=== PATIENT | male | born 1955 | race Caucasian/White ===

== ENCOUNTER 2019-03-24 09:14 | Outpatient (CLI) | payer BC, SELFPAY ==
[2019-03-24 09:58] LABS: INR 0.9
[2019-03-24 09:59] LABS: Partial Thromboplastin Time 28.3 SECONDS (22.3-36.8)
== END 2019-03-24 09:15 | disposition home or self-care (01) ==
PROVIDERS: PCP Family Medicine; Visit Provider Urology
DX: N20.1 Calculus of ureter (principal)
CPT/HCPCS: 36415; 85610; 85730; 87086

== ENCOUNTER 2019-03-30 01:34 | Day surgery (SDC) | payer BC, SELFPAY ==
[2019-03-23 10:13] VITALS: BMI 40.7
--- NOTE | ~2019-03-30 | XR_ITS ---
EXAMINATION: XR abdomen/kub 1V DATE: 03/30/2019 08:34 INDICATION: Kidney stone. TECHNIQUE: A supine view of the abdomen on 2 radiographs was obtained. COMPARISON: CT abdomen and pelvis 03/09/2019 FINDINGS: There are no dilated loops of bowel. There are bilateral internal ureteral stents in expect ed positions. There are approximately 4 stones in left kidney measuring up to 5 mm. There are greater than 10 stones in right kidney and right renal pelvis measuring up to 11 mm. There are phleboliths i n the pelvis. There is a total right hip arthroplasty. IMPRESSION: 1. Stones in the kidneys and right renal pelvis with bilateral internal ureteral stents in expected p ositions. Reviewed, dictated and finalized at location A. GATHERER IMPRESSION: 1. Stones in the kidneys and right renal pelvis with bilateral internal uretera l stents in expected positions.
--- NOTE | 2019-03-30 07:19 | WPDHPUPDATE1 ---
History and Physical Update Update Date/Time: 03/30/19 07:19 History and Physical has been reviewed, including an updated exam of the patient. There are NO changes in the patient's condition. Risks, benefits, and alternatives have been discussed and questions answered. Patient agrees to proceed with procedure.
[2019-03-30 09:00] VITALS: BMI 41.5
[2019-03-30] MEDS: LACTATED RINGERS 1,000 ML 30 ML IV CONT (09:30)
[2019-03-30 09:34] VITALS: BP 150/89; PULSE 76; RESP 14; TEMP 36.8; O2SAT 96
--- NOTE | 2019-03-30 10:15 | WPDANESEFPP ---
Anes - Eval Final PreProcedure Day of Procedure 03/30/19 10:15 Patient weight: morbidly obese Heart: regular rate and rhythm Lungs: clear to auscultation Airway: Mallampati scale class II Neurological: alert and oriented Last oral intake: >/= 8 hours ASA classification: III Emergent: no Anesthetic plan: proceed Anesthesia type and monitoring: general LMA and standard monitoring Informed Consent: The patient's anesthetic plan and its attendant risks and benefits were discussed with the patient/family/POA. Questions were solicited and answers provided to the satisfaction of the patient/family/POA.
[2019-03-30] MEDS: ceFAZolin 3 GM/D5W 100 ML 100 ML IVPB (10:56)
[2019-03-30] MEDS: LIDOCAINE HCL 2% GEL UROJET 10 ML PKG MUCOUS MEM (11:13)
--- NOTE | 2019-03-30 11:39 | PM.PROC ---
Procedure Note - Detailed Date of procedure: 03/30/19 Pre-op diagnosis: Right Post-op diagnosis: same Procedure performed: 1. Cystoscopy, left stent removal. 2. Right ESWL. Description of procedure: The patient was brought to the operative suite where he was placed in the supine position on the Dornier lithotripter table. Flexible cystoscopy was undertaken with a 16F flexible cystoscopy. There were no urethral strictures. The prostatic uretehral estimated lenght was 1.5cm. There was mild obstruction of the prostatic urethra with minimal median lobe enlargement. The bladder mucosa was normal and there was a single, orthotopic ureteral orifice bilaterally. The tip of the indwelling stent was grasped and the stent was removed with ease. The patient was then repositioned in the supine position with the focal point of the lithotriptor was placed on 2 stones in the right renal pelvis, each measuring ~8mm. A total of 2500 shocks were delivered at a power setting of 7. There appeared to be good fragmentation of the stone. The patient tolerated the procedure well and was taken to the recovery room in good condition. Anesthesia: GLMA Surgeon: Marvin Sagastume MD Estimated blood loss (mL): 0 Drains: No Packing: No Pathology: none sent Complications: No immediate complications Condition: stable
[2019-03-30 11:43] VITALS: BP 161/105; PULSE 86; RESP 10; TEMP 36.6; O2SAT 98
[2019-03-30 11:58] VITALS: BP 135/102; PULSE 73; RESP 16; O2SAT 96
[2019-03-30 12:13] VITALS: BP 148/89; PULSE 74; RESP 14; O2SAT 96
[2019-03-30 12:23] VITALS: BP 148/85; PULSE 68; RESP 16
[2019-03-30 12:50] VITALS: BP 148/90; PULSE 67; RESP 16
== END 2019-03-30 13:00 | disposition home or self-care (01) ==
PROVIDERS: PCP Family Medicine; Visit Provider Urology
PROC: (CPT 50590; principal; 2019-03-30 10:30)
PROC: (CPT 52352; 2019-03-30 10:30)
DX: N20.0 Calculus of kidney (principal)
CPT/HCPCS: 50590; 74018; J0131; J0690; J1100; J2250; J2405; J2704; J3010; J7120

== ENCOUNTER 2019-04-20 10:31 | Outpatient (CLI) | payer BC, SELFPAY ==
--- NOTE | ~2019-04-20 | XR_ITS ---
XR abdomen/kub 1V 04/20/2019 10:48 Indication: Right ureteral stone Procedure: KUB Comparison: Comparison to multiple prior studies sequentially, with oldest reviewed study dated 04/28. Findings: Bowel gas pattern is nonobstructive. There are cholecystectomy clips. There is a right inte rnal ureteral stent. There are multiple right renal stones with at least 2 stones in the expected loc ation of the right renal pelvis. There are pelvic phleboliths. Interval resolution of left renal ston es. Bowel gas pattern is nonobstructive. Right total hip arthroplasty is present. Impression: 1: Right nephrolithiasis without significant change from prior study. Right internal ureteral stent i n expected position. Reviewed, dictated and finalized at location B. RGIST IMMUNOLOGIST Impression: 1: Right nephrolithiasis without significant change from prior study. Right int ernal ureteral stent in expected position.
== END 2019-04-20 10:32 | disposition home or self-care (01) ==
LOC: ANHIMG 10:36
PROVIDERS: PCP Family Medicine; Visit Provider Urology
DX: N20.0 Calculus of kidney (principal); Z96.0 Presence of urogenital implants
CPT/HCPCS: 74018

== ENCOUNTER 2019-04-27 02:01 | Day surgery (SDC) | payer BC, SELFPAY ==
[2019-04-24 12:01] VITALS: BMI 41.5
[2019-04-27] VITALS (9 sets, daily range): BP systolic 123–151; BP diastolic 58–86; PULSE 61–77; RESP 12–20; TEMP 36.2–37.8; O2SAT 95–99
--- NOTE | ~2019-04-27 | XR_ITS ---
EXAMINATION: XR abdomen/kub 1V DATE: 04/27/2019 07:37 INDICATION: Right renal stone. TECHNIQUE: A supine view of the abdomen was obtained. COMPARISON: CT abdomen and pelvis 03/09/2019, abdomen radiographs 04/20/2019 FINDINGS: There are no dilated loops of bowel. There is a right internal ureteral stent in expected p osition. There are phleboliths in the pelvis. There are greater than 10 stones in right kidney and ri ght renal pelvis measuring up to 10 mm in right renal pelvis. IMPRESSION: 1. Stones in right kidney and right renal pelvis with right internal ureteral stent in expected posit ion. Reviewed, dictated and finalized at location A. IMPRESSION: 1. Stones in right kidney and right renal pelvis with right internal ureteral s tent in expected position.
--- NOTE | 2019-04-27 07:14 | WPDHPUPDATE1 ---
History and Physical Update Update Date/Time: 04/27/19 07:14 History and Physical has been reviewed, including an updated exam of the patient. There are NO changes in the patient's condition. Risks, benefits, and alternatives have been discussed and questions answered. Patient agrees to proceed with procedure.
--- NOTE | 2019-04-27 07:47 | ECG_ITS ---
Measurements Intervals [place] Rate: 67 P: 50 GA: 189 QRS: 46 QRSD: 97 T: 90 QT: 372 QTc: 393 Interpretive Statements SINUS RHYTHM MINIMAL Q WAVES- INFERIOR LEADS NONSPECIFIC T-WAVE ABNORMALITY- LATERAL LEADS BORDERLINE ECG Electronically Signed On 04-27-2019 8:02:06 CDT by Raj Hudson D.O.
[2019-04-27] MEDS: LACTATED RINGERS 1,000 ML 30 ML IV CONT (08:15)
--- NOTE | 2019-04-27 08:28 | WPDANESEPPF ---
Anes - Initial Pre Proc Eval Procedure: Operation Date: 04/27/19 09:30 Proposed Procedures p Cystoscopy, Right Renal Extracorporeal Shock Wave Lithotripsy With Stent Removal - Marvin Sagastume MD Date/Time: 04/27/19 08:28 Surgeon: Marvin Sagastume MD Pre Op Diagnosis: Kidney Stones Patient Data Age: 63 Gender: M Height: 1.7 m Weight: 120.2 kg Allergies Allergy/AdvReac Type Severity Reaction Status Date / Time No Known Allergies Allergy Verified 04/27/19 07:57 Home Medications Medication Instructions Recorded Confirmed Type cholecalciferol (vitamin D3) 125 mcg PO DAILY 03/06/19 04/27/19 History [Vitamin D3] enalapril maleate 10 mg PO DAILY 03/06/19 04/27/19 History finasteride 5 mg PO DAILY 03/06/19 04/27/19 History rosuvastatin 10 mg PO DAILY 03/06/19 04/27/19 History Laboratory Tests 04/27/19 07:55 PT Pending INR Pending APTT Pending Patient hx anesthesia problems: none Family hx anesthesia problems: none [facility] Past Medical History Medical History (Updated 04/26/19 @ 12:59 by Rg Khoury DO) Arthritis Depression Hyperlipidemia Hypertension Osteoarthritis Renal stones Surgical History Surgical History (Updated 04/26/19 @ 12:59 by Rg Khoury DO) History of appendectomy History of total hip arthroplasty Anes - Eval Final PreProcedure Day of Procedure 04/27/19 08:28 Patient weight: morbidly obese Heart: regular rate and rhythm Lungs: clear to auscultation and normal air movement Airway: Mallampati scale class III Neurological: alert and oriented Last oral intake: >/= 8 hours ASA classification: III Emergent: no Anesthetic plan: proceed Anesthesia type and monitoring: general LMA and standard monitoring Informed Consent: The patient's anesthetic plan and its attendant risks and benefits were discussed with the patient/family/POA. Questions were solicited and answers provided to the satisfaction of the patient/family/POA.
[2019-04-27 08:36] LABS: INR 0.9; Prothrombin Time 12.1 Seconds (11.1-14.7)
[2019-04-27 08:37] LABS: Partial Thromboplastin Time 27.7 SECONDS (22.3-36.8)
[2019-04-27] MEDS: ceFAZolin 3 GM/D5W 100 ML 100 ML IVPB (08:52)
--- NOTE | 2019-04-27 09:39 | PM.PROC ---
Procedure Note - Detailed Date of procedure: 04/27/19 Pre-op diagnosis: Right proximal ureteral/ Post-op diagnosis: same Procedure performed: 1. Right ESWL. 2. Cysto./right ureteral stent removal. Description of procedure: The patient was brought to the operative suite where he was placed in the supine position on the Dornier lithotripter table. Flexible cystoscopy was undertaken with a 16F flexible cystoscopy. There were no urethral strictures. The prostatic uretehral estimated lenght was 2.0cm. There was mild obstruction of the prostatic urethra with no median lobe enlargement. The bladder mucosa was normal and there was a single, orthotopic ureteral orifice bilaterally. The tip of the indwelling stent was grasped and the stent was removed with ease The patient was then repositioned in the supine position with the focal point of the lithotriptor on a collection of stone fragments in the proximal right ureter/right UPJ. A total of 3000 shocks were delivered at a power setting of 8. There appeared to be good fragmentation of the stone. The patient tolerated the procedure well and was taken to the recovery room in good condition. Anesthesia: GLMA Surgeon: Marvin Sagastume MD Estimated blood loss (mL): 0 Drains: No Packing: No Pathology: none sent Complications: No immediate complications Condition: stable Disposition: PACU
--- NOTE | 2019-04-27 10:22 | SUR.PHASEI ---
1015-STATES HAS CHRONIC BACK PAIN THAT IS WORSENED WITH LOW STRETCHER POSITION, PT REPOSITIONED ON STRETCHER AND ELEVATED HOB TO MORE SITTING POSITION. PT. STATES IS MUCH BETTER AND DENIES ANY OP SITE DISCOMFORT. 1020-RESTING QUIETLY, SNORING, IN UPRIGHT POSITION WITH EYES CLOSED, NOT DISTURBED.
== END 2019-04-27 11:23 | disposition home or self-care (01) ==
PROVIDERS: PCP Family Medicine; Visit Provider Urology
PROC: (CPT 50590; principal; 2019-04-27 09:30)
DX: N20.1 Calculus of ureter (principal); I10 Essential (primary) hypertension; E78.5 Hyperlipidemia, unspecified; M19.90 Unspecified osteoarthritis, unspecified site; F32.9 Major depressive disorder, single episode, unspecified; E66.01 Morbid (severe) obesity due to excess calories; Z68.41 Body mass index [BMI] 40.0-44.9, adult
CPT/HCPCS: 50590; 52310; 36415; 74018; 85610; 85730; 93005; A9270; J0131; J0690; J1100; J2250; J2405; J2704; J3010; J7030; J7120

== ENCOUNTER 2019-11-06 09:24 | Outpatient (CLI) | payer BC, SELFPAY ==
--- NOTE | ~2019-11-06 | XR_ITS ---
EXAMINATION: XR abdomen/kub 1V EXAM DATE: 11/06/2019 09:38 INDICATION: Kidney stones. TECHNIQUE: Frontal projection(s) of the abdomen for interpretation. Comparison is made to prior exami nation from 04/27/19. FINDINGS: Right-sided double-J ureteral stent has been removed. Calcifications, probably stone fragm ents following lithotripsy, projecting over the lower pole of the right kidney, the ureteropelvic frank ction region and mid aspect of the ureter. Approximately 3 mm density projecting over left kidney, po ssible nephrolithiasis. Nonobstructive bowel gas pattern. There are cholecystectomy clips. Right hip replacement. IMPRESSION: 1. Large burden of right calyceal, ureteral stones. 2. Possible small left nephrolithiasis. Reviewed, dictated and finalized at location B.
== END 2019-11-06 09:25 | disposition home or self-care (01) ==
PROVIDERS: PCP Family Medicine; Visit Provider Urology
DX: N20.0 Calculus of kidney (principal)
CPT/HCPCS: 74018

== ENCOUNTER 2019-11-08 12:52 | Outpatient (CLI) | payer BC, SELFPAY ==
--- NOTE | ~2019-11-08 | CT_ITS ---
EXAMINATION: CT abdomen pelvis wo con EXAM DATE: 11/08/2019 13:12 INDICATION: Right flank pain. TECHNIQUE: Spiral CT of the abdomen and pelvis was performed without contrast. Axial, coronal and sag ittal images were reviewed. The dose-length product (DLP) for this examination was 1579.67 mGy-cm. The exposure was tailored according to patient size (auto mA exposure control), and iterative reconst ruction (ASIR) was used as additional dose reduction technique. Comparison is made to prior examinati on from 03/09/2019. FINDINGS: There are several contiguous right ureteropelvic junction stones, measuring up to 10 mm in greatest axial dimension. In craniocaudal dimension these calcifications measure over 2 cm. There is another 6 mm stone in the dependent aspect of the right renal pelvis, and several other smaller calyc eal stones. There is moderate right-sided hydronephrosis. Multiple punctate left calyceal stones. The prostate is unremarkable. The bladder is unremarkable. There is hepatic steatosis without suspi cious focal lesion identified. Spleen, adrenal glands, pancreas are unremarkable. Gallbladder is unr emarkable. No biliary obstruction. There is no retroperitoneal or pelvic lymphadenopathy. There i s mild scattered arteriosclerotic disease. The appendix is normal. The stomach and small bowel are unremarkable. There is mild sigmoid colonic diverticulosis. There is no adjacent inflammatory change to suggest diverticulitis. No free intrape ritoneal gas. The heart is normal in size. There are no pericardial or pleural effusions. The delta g bases are unremarkable. There are no osteoblastic or osteolytic lesions identified. IMPRESSION: 1. Multiple sizable right UPJ stones, moderate hydronephrosis. 2. Bilateral nephrolithiasis. Urologist consultants would appreciate KUB as baseline for follow-up, treatment planning. Reviewed, dictated and finalized at location B.
== END 2019-11-08 12:53 | disposition home or self-care (01) ==
PROVIDERS: PCP Family Medicine; Visit Provider Urology
DX: N20.0 Calculus of kidney (principal)
CPT/HCPCS: 74176

== ENCOUNTER 2019-11-16 10:44 | Outpatient (CLI) | payer BC, SELFPAY ==
[2019-11-16 11:16] LABS: INR 1.1; Prothrombin Time 13.5 Seconds (11.1-14.7)
== END 2019-11-16 10:45 | disposition home or self-care (01) ==
LOC: ANHLAB 10:46
PROVIDERS: PCP Family Medicine; Visit Provider Urology
DX: N20.0 Calculus of kidney (principal); Z01.812 Encounter for preprocedural laboratory examination
CPT/HCPCS: 36415; 85610; 85730; 87086

== ENCOUNTER 2019-11-21 01:54 | Outpatient (CLI) | payer BC, SELFPAY ==
[2019-11-21 19:19] LABS: SARS-CoV-2 RNA PCR Negative
== END 2019-11-21 01:55 | disposition home or self-care (01) ==
LOC: ANHCOVIDDT 01:54
PROVIDERS: PCP Family Medicine; Visit Provider Urology
DX: Z01.812 Encounter for preprocedural laboratory examination (principal); Z20.828 Contact with and (suspected) exposure to other viral communicable diseases
CPT/HCPCS: 87635; C9803; U0003

== ENCOUNTER 2019-11-23 00:29 | Day surgery (SDC) | payer BC, SELFPAY ==
[2019-11-13 13:54] VITALS: BMI 42.1
--- NOTE | 2019-11-22 07:17 | P.HP_ITS ---
History of Present Illness History of Present Illness Consent: Risks, benefits, and alternatives have been discussed and questions answered. Patient agrees to proceed with procedure. Chief complaint: UPJ Stones Narrative: Craig Caicedo is a 64 year old male Who has had multiple lithotripsies in the past. He is known to have residual stones in the right kidney which has now grown to a considerable size, approximately 2 cm. I discussed options with him including repeat ESWL procedures, percutaneous nephrolithotomy, endoscopic approach. He has opted for ESWL with the realization that this might require multiple procedures Review of Systems Cardiovascular: Cardiovascular: Denies chest pain, Denies lightheadedness, Denies palpitations and Denies dyspnea Respiratory: Respiratory: Denies dyspnea Gastrointestinal: Gastrointestinal: Denies diarrhea, Denies nausea and Denies vomiting Genitourinary: Genitourinary: Denies hematuria and Denies dysuria Endocrine: Endocrine: Denies palpitations [facility] Past Medical History Medical History (Updated 11/22/19 @ 07:19 by Marvin Sagastume MD) Arthritis Depression Hyperlipidemia Hypertension Osteoarthritis Renal stones Surgical History Surgical History History of appendectomy History of total hip arthroplasty Social History Social History Smoking status: Never smoker Alcohol intake: never Meds Home Medications and Allergies Home Medications Medication Instructions Recorded Confirmed Type enalapril maleate 10 mg PO DAILY 03/06/19 11/13/19 History finasteride 5 mg PO DAILY 03/06/19 11/13/19 History rosuvastatin 10 mg PO DAILY 03/06/19 11/13/19 History diclofenac sodium 75 mg PO BID PRN 11/13/19 11/13/19 History Allergies Allergy/AdvReac Type Severity Reaction Status Date / Time No Known Allergies Allergy Verified 04/27/19 07:57 Exam Const: General: no acute distress Resp: Effort & Inspection: normal respiratory effort GI: Inspection: non-distended GI Palp: No abdominal tenderness and No Guarding due to palpation present (GI) Auscultation: normal bowel sounds Assessment and Plan Assessment and plan (1) Right renal stone: Code(s): N20.0 - Calculus of kidney Status: Acute Additional Plan * Cystoscopy, possible right ureteral stent placement and right ESWL
--- NOTE | ~2019-11-23 | XR_ITS ---
XR abdomen/kub 1V DATE: 11/23/2019 07:41 INDICATION: Right lithotripsy. Right urinary tract stones. TECHNIQUE: AP projection, 2 views COMPARISON: 11/08/[address] abdomen pelvis FINDINGS: Approximately 5 and 6 mm calcified calculi overlying the lower pole of the right kidney. Ad ditional right renal faintly calcified stones are not excluded. Approximate 6 x 14 mm tear-drop calcified calculus overlies the proximal right ureter at the L2 level . There is an approximate 4.5 cm length of calcified stones (Steinstrasse) overlying the right ureter a t the L4 level. Bilateral calcified pelvic phleboliths. The psoas shadows are intact. No evidence of bowel obstruction. Surgical clips, right upper quadrant, consistent with cholecystectomy. IMPRESSION: Right ureteral Steinstrasse at L4 level 6 x 14 mm calcified calculus at proximal right ureter at L2 level Right nephrolithiasis Status post cholecystectomy Reviewed, dictated and finalized at Location A. Reviewed, dictated and finalized at location A.
--- NOTE | 2019-11-23 07:04 | WPDHPUPDATE1 ---
History and Physical Update Update Date/Time: 11/23/19 07:04 History and Physical has been reviewed, including an updated exam of the patient. There are NO changes in the patient's condition. Risks, benefits, and alternatives have been discussed and questions answered. Patient agrees to proceed with procedure.
[2019-11-23 07:52] VITALS: BP 151/96; PULSE 85; RESP 20; TEMP 36.2; O2SAT 97
[2019-11-23] MEDS: LACTATED RINGERS 1,000 ML 30 ML IV CONT ×2 (08:02→10:17)
--- NOTE | 2019-11-23 09:00 | P.PNAN_ITS ---
Anes - Initial Pre Proc Eval Procedure: Operation Date: 11/23/19 09:30 Proposed Procedures p Right Ureteral Extracorporeal Shock Wave Lithotripsy - Marvin Sagastume MD s Possible Cystoscopy, Possible Right Ureteral Stent Placement - Marvin Sagastume MD Date/Time: 11/23/19 09:00 Surgeon: Marvin Sagastume MD Pre Op Diagnosis: UPJ Stones Patient Data Age: 64 Gender: M Height: 5 ft 7 in Weight: 122 kg Last Vital Signs Temp 36.2 C L 11/23/19 07:52 Pulse 85 11/23/19 07:52 Resp 20 11/23/19 07:52 BP 151/96 H 11/23/19 07:52 Pulse Ox 97 11/23/19 07:52 Allergies Allergy/AdvReac Type Severity Reaction Status Date / Time No Known Allergies Allergy Verified 11/23/19 08:33 Home Medications Medication Instructions Recorded Confirmed Type enalapril maleate 10 mg PO DAILY 03/06/19 11/23/19 History finasteride 5 mg PO DAILY 03/06/19 11/23/19 History rosuvastatin 10 mg PO DAILY 03/06/19 11/23/19 History diclofenac sodium 75 mg PO BID PRN 11/13/19 11/23/19 History Patient hx anesthesia problems: none Family hx anesthesia problems: none PMFSH Past Medical History Medical History Arthritis Depression Hyperlipidemia Hypertension Osteoarthritis Renal stones Surgical History Surgical History History of appendectomy History of total hip arthroplasty Social History Social History Smoking status: Never smoker Alcohol intake: never Living arrangements: with family Anes - Eval Final PreProcedure Day of Procedure 11/23/19 09:00 Patient weight: morbidly obese Heart: regular rate and rhythm Lungs: clear to auscultation Airway: Mallampati scale class II Neurological: alert and oriented Last oral intake: >/= 8 hours ASA classification: III Emergent: no Anesthetic plan: proceed Anesthesia type and monitoring: general LMA and ETT and standard monitoring Informed Consent: The patient's anesthetic plan and its attendant risks and benefits were discussed with the patient/family/POA. Questions were solicited a nd answers provided to the satisfaction of the patient/family/POA.
[2019-11-23] MEDS: ceFAZolin 3 GM/D5W 100 ML 100 ML IVPB (09:28)
--- NOTE | 2019-11-23 09:53 | PM.PROC ---
Procedure Note - Detailed Date of procedure: 11/23/19 Pre-op diagnosis: UPJ Stones Post-op diagnosis: same Procedure performed: Right ESWL Description of procedure: The patient was brought to the operative suite where he was placed in the supine position on the Dornier lithotripsy table. The focal point of the lithotripter was placed at a collection of stones at right UPJ and extending into proximal right ureter. A total of 3000 shocks were delivered at a power setting of 6. There appeared to be good fragmentation of the stone. The patient tolerated the procedure well and was taken to the recovery room in good condition. Anesthesia: GLMA Surgeon: Marvin Sagastume MD Estimated blood loss (mL): 0 Drains: No Packing: No Pathology: none sent Complications: No immediate complications Condition: stable Disposition: PACU
[2019-11-23 10:20] VITALS: BP 135/91; PULSE 82; RESP 18; TEMP 36.8; O2SAT 98
[2019-11-23 10:35] VITALS: BP 138/91; PULSE 67; RESP 16; O2SAT 100
[2019-11-23 10:50] VITALS: BP 125/92; PULSE 68; RESP 16; O2SAT 99
[2019-11-23 10:58] VITALS: BP 154/89; PULSE 67
[2019-11-23 11:30] VITALS: BP 158/84; PULSE 69
== END 2019-11-23 11:50 | disposition home or self-care (01) ==
PROVIDERS: PCP Family Medicine; Visit Provider Urology
PROC: (CPT 50590; principal; 2019-11-23 09:30)
DX: N20.1 Calculus of ureter (principal); I10 Essential (primary) hypertension; E78.5 Hyperlipidemia, unspecified; F32.9 Major depressive disorder, single episode, unspecified; M19.90 Unspecified osteoarthritis, unspecified site; E66.01 Morbid (severe) obesity due to excess calories; Z68.41 Body mass index [BMI] 40.0-44.9, adult
CPT/HCPCS: 50590; 74018; A9270; J0690; J1100; J2405; J2704; J7030; J7120

== ENCOUNTER 2019-12-13 15:30 | Outpatient (CLI) | payer BC, SELFPAY ==
--- NOTE | ~2019-12-13 | XR_ITS ---
XR abdomen/kub 1V 12/13/2019 15:49 Indication: Renal stones Procedure: KUB Comparison: Comparison to multiple prior studies sequentially, with oldest reviewed study dated 07/2019. Findings: There are multiple right ureteral stones at the L2-3 and L5 levels. There are multiple bila teral renal stones. There are cholecystectomy clips. There is a right total hip arthroplasty. Bowel g as pattern is nonobstructive. No acute osseous abnormality. Impression: 1: Bilateral renal and right ureteral stones. Reviewed, dictated and finalized at location A. Impression: 1: Bilateral renal and right ureteral stones.
== END 2019-12-13 15:31 | disposition home or self-care (01) ==
PROVIDERS: PCP Family Medicine; Visit Provider Urology
DX: N20.2 Calculus of kidney with calculus of ureter (principal)
CPT/HCPCS: 74018

== ENCOUNTER 2020-01-14 00:30 | Outpatient (CLI) | payer BC, SELFPAY ==
[2020-01-14 20:45] LABS: SARS-CoV-2 RNA PCR Negative
== END 2020-01-14 00:31 | disposition home or self-care (01) ==
LOC: ANHCOVIDDT 00:30
PROVIDERS: PCP Family Medicine; Visit Provider Urology
DX: Z01.818 Encounter for other preprocedural examination (principal); Z20.828 Contact with and (suspected) exposure to other viral communicable diseases
CPT/HCPCS: 87635; C9803; U0003

== ENCOUNTER 2020-01-17 01:01 | Day surgery (SDC) | payer BC, SELFPAY ==
--- NOTE | 2020-01-07 17:01 | P.HP_ITS ---
History of Present Illness History of Present Illness Consent: Risks, benefits, and alternatives have been discussed and questions answered. Patient agrees to proceed with procedure. Chief complaint: Right Renal Stone Narrative: Craig Caicedo is a 64 year old male With a history of recurring urolithiasis. He recently underwent ESWL for a right ureteral calculus. Postoperatively, he has done well, but continues to have multiple fragments in his right mid ureter. After discussion of options he has elected for an endoscopic approach to stone extraction. Review of Systems Cardiovascular: Cardiovascular: Denies chest pain, Denies lightheadedness, Denies palpitations and Denies dyspnea Respiratory: Respiratory: Denies dyspnea Gastrointestinal: Gastrointestinal: Denies diarrhea, Denies nausea and Denies vomiting Genitourinary: Genitourinary: Denies hematuria and Denies dysuria Endocrine: Endocrine: Denies palpitations PMFSH Past Medical History Medical History Arthritis Depression Hyperlipidemia Hypertension Osteoarthritis Renal stones Surgical History Surgical History History of appendectomy History of total hip arthroplasty Social History Social History Smoking status: Never smoker Alcohol intake: never Meds Home Medications and Allergies Home Medications Medication Instructions Recorded Confirmed Type enalapril maleate 10 mg PO DAILY 03/06/19 11/23/19 History finasteride 5 mg PO DAILY 03/06/19 11/23/19 History rosuvastatin 10 mg PO DAILY 03/06/19 11/23/19 History diclofenac sodium 75 mg PO BID PRN 11/13/19 11/23/19 History ciprofloxacin HCl 500 mg PO Q12H #6 tablet 11/23/19 Rx hydrocodone-acetaminophen 1 - 2 tablet PO Q6H PRN #20 tablet 11/23/19 Rx Allergies Allergy/AdvReac Type Severity Reaction Status Date / Time No Known Allergies Allergy Verified 11/23/19 08:33 Exam Const: General: no acute distress Resp: Effort & Inspection: normal respiratory effort GI: Inspection: non-distended GI Palp: No abdominal tenderness and No Guarding due to palpation present (GI) Auscultation: normal bowel sounds Assessment and Plan Assessment and plan (1) Ureteral calculus, right: Code(s): N20.1 - Calculus of ureter Status: Acute Assessment and Plan: * cystoscopy with right ureteroscopy, laser lithotripsy and stone extraction with possible right ureteral stent placement. Patient is aware of alternative options including ESWL and observation. He is aware of the risk including, but not limited to, adverse cardiopulmonary events, ureteral perforation, persistent stone and need for placement of the stent.
[2020-01-08 09:37] VITALS: BMI 42.5
--- NOTE | ~2020-01-17 | XR_ITS ---
EXAMINATION: XR stent kub - surgery DATE: 01/17/2020 13:48 INDICATION: Right internal ureteral stent placement TECHNIQUE: Fluoroscopic images from a right internal ureteral stent placement are submitted for rui cook 21 seconds of fluoroscopy time. 198 fluoroscopic images. FINDINGS: There is a right double-J internal ureteral stent projecting in expected position, with proximal Wirtz loop at the level of the renal pelvis and distal loop in the pelvis within the bladder lumen. IMPRESSION: 1. Right internal ureteral stent placement. Please refer to real-time procedural findings for tip saeed. Reviewed, dictated and finalized at location B. ILE TECHNICAL OFFICER IMPRESSION: 1. Right internal ureteral stent placement. Please refer to real-time procedu ral findings for details.
--- NOTE | ~2020-01-17 | XR_ITS ---
EXAMINATION: XR abdomen/kub 1V DATE: 01/17/2020 10:14 INDICATION: Right ureteral stone. TECHNIQUE: A supine view of the abdomen on 2 radiographs was obtained. COMPARISON: CT abdomen and pelvis 11/08/2019 FINDINGS: There are no dilated loops of bowel. There is a cluster of stones measuring up to 5 mm in r ight kidney. There is a 4 mm stone in left kidney. There is a 13 x 6 mm stone in proximal right urete r at L2. There are multiple stones in right ureter at L5 and overlying the sacrum. There are phleboli ths in the pelvis. There is a total right hip arthroplasty. IMPRESSION: 1. Stones in the kidneys and right ureter. Reviewed, dictated and finalized at location A. RER WRECKING AND SALVAGING
--- NOTE | 2020-01-17 06:48 | WPDHPUPDATE1 ---
History and Physical Update Update Date/Time: 01/17/20 06:48 History and Physical has been reviewed, including an updated exam of the patient. There are NO changes in the patient's condition. Risks, benefits, and alternatives have been discussed and questions answered. Patient agrees to proceed with procedure.
[2020-01-17 10:02] VITALS: BP 182/104; PULSE 86; RESP 20; TEMP 36.5; O2SAT 96
[2020-01-17] MEDS: LACTATED RINGERS 1,000 ML 30 ML IV CONT ×2 (10:35→13:36)
--- NOTE | 2020-01-17 10:42 | WPDANESEPPF ---
Anes - Initial Pre Proc Eval Procedure: Operation Date: 01/17/20 12:00 Proposed Procedures p Cystoscopy, Right Ureteroscopy, Right Stone Extraction, Right Stent Placement - Marvin Sagastume MD s Holmium Laser Lithotripsy - Marvin Sagastume MD Date/Time: 01/17/20 10:42 Surgeon: Marvin Sagastume MD Pre Op Diagnosis: Right Renal Stone Patient Data Age: 64 Gender: M Height: 5 ft 7 in Weight: 123 kg Allergies Allergy/AdvReac Type Severity Reaction Status Date / Time No Known Allergies Allergy Verified 01/08/20 09:31 Home Medications Medication Instructions Recorded Confirmed Type enalapril maleate 10 mg PO QNOON 03/06/19 01/08/20 History finasteride 5 mg PO QNOON 03/06/19 01/08/20 History rosuvastatin 10 mg PO QNOON 03/06/19 01/08/20 History diclofenac sodium 75 mg PO HS 11/13/19 01/08/20 History Patient hx anesthesia problems: none Family hx anesthesia problems: none [facility] Past Medical History Medical History Arthritis Depression Hyperlipidemia Hypertension Osteoarthritis Renal stones Surgical History Surgical History History of appendectomy History of total hip arthroplasty Social History Social History Smoking status: Never smoker Alcohol intake: former Alcohol use details: SOCIAL DRINKER IN PAST Substance use: never Living arrangements: with family Additional living arrangements comments: Spiritual care concerns: No Anes - Eval Final PreProcedure Day of Procedure 01/17/20 10:42 Patient weight: morbidly obese Heart: regular rate and rhythm Lungs: clear to auscultation Airway: Mallampati scale class II Neurological: alert and oriented Last oral intake: >/= 8 hours ASA classification: III Emergent: no Anesthetic plan: proceed Anesthesia type and monitoring: general LMA and standard monitoring Informed Consent: The patient's anesthetic plan and its attendant risks and benefits were discussed with the patient/family/POA. Questions were solicited and answers provided to the satisfaction of the patient/family/POA.
--- NOTE | 2020-01-17 13:38 | P.OP_ITS ---
Procedure Note - Detailed Date of procedure: 01/17/20 Pre-op diagnosis: Right Renal Stone Post-op diagnosis: same Procedure performed: Cystoscopy, right ureteroscopy with laser lithotripsy and stone extraction, right ureteral stent placement Description of procedure: The patient was brought to the operative suite where he is prepped and draped in a routine sterile fashion while in the dorsal lithotomy position after the uneventful induction of a general LMA anesthetic. A 19F rigid cystoscope was placed in the bladder. There are no urethral strictures. His prostatic urethra measures, approximately, 2.0cm with no median lobe enlargement. The bladder mucosa was endoscopically normal without hyperemia or neoplasm. There was a single, orthotopic ureteral orifice bilaterally. A 0.035 glidewire was advanced into the right renal pelvis under fluoroscopy. The distal ureter was dilated with an 8F/10F ureteral dilator. Ureteroscopy was undertaken with a [short tapered semi-rigid ureteroscope. Using a 273 micron holmium laser fiber I 1st fractured several stones that had created a Steinstrasse in the right mid ureter. Multiple smaller stones were extracted intact with a basket. I then treated the largest 13 mm right pro ximal ureteral stone with the same laser fiber. A couple fragments left in a lower pole calyx which I did not remove that were difficult to visualize because of some hematuria. Due to the extent of this manipulation I did place a 4.8F double-J ureteral stent. The proximal coil of the stent was confirmed to be in the renal pelvis and the distal coil in the bladder. The patient's bladder was emptied and he was taken to the recovery room having tolerated this procedure well. Anesthesia: GLMA Surgeon: Marvin Sagastume MD Estimated blood loss (mL): 10 Drains: No Packing: No Pathology: yes Complications: No immediate complications Condition: stable Disposition: PACU
[2020-01-17 13:40] VITALS: BP 129/81; PULSE 92; RESP 22; TEMP 36.2; O2SAT 96
[2020-01-17 13:45] VITALS: BP 119/60; PULSE 81; RESP 16; O2SAT 96
[2020-01-17 14:00] VITALS: BP 133/75; PULSE 79; RESP 18; O2SAT 96
[2020-01-17 14:22] VITALS: BP 165/86; PULSE 80; RESP 16
[2020-01-17 14:50] VITALS: BP 166/88; PULSE 78; RESP 16
== END 2020-01-17 15:15 | disposition home or self-care (01) ==
PROVIDERS: PCP Family Medicine; Visit Provider Urology
PROC: (CPT 52352; principal; 2020-01-17 12:00)
PROC: (CPT 52356; 2020-01-17 12:00)
DX: N20.1 Calculus of ureter (principal); I10 Essential (primary) hypertension; E78.5 Hyperlipidemia, unspecified; F32.9 Major depressive disorder, single episode, unspecified; E66.01 Morbid (severe) obesity due to excess calories; Z68.41 Body mass index [BMI] 40.0-44.9, adult
CPT/HCPCS: 52356; 74018; 82365; 88300; A9270; C1769; C1887; C1894; C2617; J0360; J1100; J2250; J2405; J2704; J3010; J7120

== ENCOUNTER 2020-12-12 00:45 | Day surgery (SDC) | payer MEDICARE, OTHER, SELFPAY ==
[2020-12-08 09:50] VITALS: BMI 41.5
--- NOTE | 2020-12-11 14:18 | P.PNAN_ITS ---
Anes - Initial Pre Proc Eval Procedure: Operation Date: 12/12/20 07:30 Proposed Procedures p Right Open Rotator Cuff Repair - Issa Torre MD Date/Time: 12/11/20 14:18 Surgeon: Issa Torre MD Pre Op Diagnosis: right shoulder rotator cuff tear Patient Data Age: 65 Gender: M Height: 1.7 m Weight: 120.2 kg Allergies Allergy/AdvReac Type Severity Reaction Status Date / Time No Known Allergies Allergy Verified 12/12/20 07:03 Home Medications Medication Instructions Recorded Confirmed Type enalapril maleate 10 mg PO QNOON 03/06/19 12/12/20 History finasteride 5 mg PO QNOON 03/06/19 12/12/20 History rosuvastatin 10 mg PO QNOON 03/06/19 12/12/20 History diclofenac sodium 75 mg PO HS 11/13/19 12/12/20 History hydrocodone-acetaminophen 1 - 2 tablet PO Q6H PRN #30 tablet 01/17/20 12/12/20 Rx chlorhexidine gluconate 4 % 1 applic TOPICAL ONCE #237 ml 11/18/20 12/12/20 Rx topical liquid Patient hx anesthesia problems: none Family hx anesthesia problems: none Results Review: All pre-operative results and documents have been reviewed as part of the pre-operative evaluation. [facility] Past Medical History Medical History Arthritis Depression Hyperlipidemia Hypertension Osteoarthritis Renal stones Surgical History Surgical History History of appendectomy History of total hip arthroplasty Social History Social History Smoking status: Never smoker Alcohol intake: former Alcohol use details: SOCIAL DRINKER IN PAST Substance use: never Substance use type: does not use Living arrangements: with family Additional living arrangements comments: Spiritual care concerns: No Anes - Eval Final PreProcedure Day of Procedure 12/11/20 14:18 Patient weight: morbidly obese Heart: regular rate and rhythm Lungs: clear to auscultation Airway: Mallampati scale class III Neurological: alert and oriented Last oral intake: >/= 8 hours ASA classification: III Emergent: no Anesthetic plan: proceed Anesthesia type and monitoring: general and standard monitoring Results Review: All pre-operative results and documents have been reviewed as part of the pre-operative evaluation. Informed Consent: The patient's anesthetic plan and its attendant risks and benefits were discussed with the patient/family/POA. Questions were solicited and answers provided to the satisfaction of the patient/family/POA.
--- NOTE | 2020-12-11 14:30 | WPDANESPNB ---
Anes - Peripheral Nerve Block Date/Time: 12/11/20 14:30 I have discussed with the patient/family/POA the placement of a peripheral nerve block for post-operative pain management, including associated risks, benefits, complications, and side effects. Alternative methods of post-operative analgesia were detailed. Questions were solicited and answers provided to the satisfaction of the patient/family/POA. Time-Out: A pre-procedural Time-Out was completed immediately before starting the procedure and confirmed: Patient Identification, Site, Procedure, Patient Position and the Availability of Requisite Equipment. Clinical Indications: Acute post-operative pain management requested by the operative surgeon. Nerve Block Insertion Note Anes-nerve block: interscalene right Patient position: supine Skin prep: chlorhexidine Needle: 22 gauge, stimulating, insulated echogenic needle. Needle length: 50 mm Technique: ultrasound Injectate: bupivacaine 0.5% with epi 5 mcg/ml (30cc- no epi) Observations: tolerated well Complications: none Procedure start time:: 732 Procedure end time:: 736
[2020-12-12] VITALS (9 sets, daily range): BP systolic 126–174; BP diastolic 66–94; PULSE 60–76; RESP 16–20; TEMP 36.2–36.6; O2SAT 93–97
--- NOTE | 2020-12-12 06:49 | ECG_ITS ---
Measurements Intervals [place] Rate: 60 P: 39 MI: 196 QRS: 44 QRSD: 102 T: 89 QT: 380 QTc: 382 Interpretive Statements SINUS RHYTHM NONSPECIFIC T-WAVE ABNORMALITY- HIGH LATERAL LEADS BORDERLINE ECG Electronically Signed On 12-12-2020 8:16:43 CDT by Raj Hudson D.O.
[2020-12-12] MEDS: CELECOXIB 200 MG CAPSULE PO (06:55)
[2020-12-12] MEDS: ACETAMINOPHEN 500 MG TABLET 1000 MG PO (06:55)
[2020-12-12] MEDS: LACTATED RINGERS 1,000 ML 30 ML IV CONT ×2 (07:00→09:35)
--- NOTE | 2020-12-12 07:28 | WPDHPUPDATE1 ---
History and Physical Update Update Date/Time: 12/12/20 07:28 History and Physical has been reviewed, including an updated exam of the patient. There are NO changes in the patient's condition. Risks, benefits, and alternatives have been discussed and questions answered. Patient agrees to proceed with procedure.
[2020-12-12] MEDS: ceFAZolin 3 GM/D5W 100 ML 100 ML IVPB (07:39)
[2020-12-12] MEDS: MICONAZOLE NITRATE 2% CREAM 30 GM TUBE 1 APPLIC TOPICAL (08:42)
--- NOTE | 2020-12-12 10:00 | W.PM.PROC2 ---
Procedure Note - Detailed Date of Procedure 12/12/20 Pre-op Diagnosis right shoulder rotator cuff tear Post-op Diagnosis same Procedure Performed REPAIR RIGHT ROTATOR CUFF Surgeon Issa Torre MD Anesthesia general Description of Procedure THE PATIENT WAS TAKEN TO THE OPERATING ROOM AND THEN INTUBATED AND PLACED IN THE BEACH CHAIR POSITION. THE RIGHT UPPER EXTREMITY WAS PREPPED AND DRAPED IN THE NORMAL STERILE FASHION. AN INCISION WAS MADE IN BETWEEN THE ANNEMARIE-LATERAL ACROMION AND THE AC JOINT. THE FASCIA WAS IDENTIFIED. NEXT A MINI OPEN INCISION WAS MADE THROUGH THE DELTOID MUSCLE EXPOSING THE SUBACROMIAL SPACE. A LIMITED ACROMIOPLASTY WAS PREFORMED. THE ROTATOR CUFF WAS IDENTIFIED. THERE WAS A FULL THICKNESS TEAR. IT MEASURED APPROXIMATELY 1 CM X 1 CM. THE GREATER TUBEROSITY WAS DEBRIDED TO BLEEDING BONE. 1 ARTHREX 5.5 SUTURE ANCHORS WERE PLACED IN TO GOOD BONE AND HAD VERY GOOD BITES. ADIN-PIO TYPE REPAIRS WERE DONE TO THE ROTATOR CUFF AND THERE WAS GOOD APPROXIMATION TO THE GREATER TUBEROSITY. THE REPAIR WAS EXCELLENT. THERE WAS NO IMPINGEMENT ON THE REPAIR FROM THE ACROMION WITH RANGE OF MOTION. THE WOUND WAS IRRIGATED WITH COPIOUS AMOUNTS OF ANTIBIOTIC SOLUTION. THE DELTOID MUSCLE WAS REPAIRED WITH #2 FIBER WIRE AND 0 VICRYL SUTURE. THE SUBCUTANEOUS LAYER WAS APPROXIMATED WITH 2-0 VICRYL. THE SKIN WAS APPROXIMATED WITH 3-0 QUIL AND DERMABOND. STERILE DRESSING WAS APPLIED. PATIENT WAS EXTUBATED. Estimated Blood Loss 20 Complications No immediate complications Condition stable Disposition PACU
[2020-12-12] MEDS: oxyCODONE HCL (*CRX) 5 MG TAB IR PO (10:40)
[2020-12-12] MEDS: fentaNYL CITRATE INJ (*CRX) 100 MCG/2 ML VIAL 25 MCG IV PUSH ×4 (11:15→11:45)
== END 2020-12-12 12:15 | disposition home or self-care (01) ==
PROVIDERS: PCP Family Medicine; Visit Provider Orthopaedic Surgery
PROC: (CPT 23420; principal; 2020-12-12 07:30)
DX: M75.121 Complete rotator cuff tear or rupture of right shoulder, not specified as traumatic (principal); G89.18 Other acute postprocedural pain; I10 Essential (primary) hypertension; E78.5 Hyperlipidemia, unspecified; E66.01 Morbid (severe) obesity due to excess calories; Z68.41 Body mass index [BMI] 40.0-44.9, adult; Z96.649 Presence of unspecified artificial hip joint
CPT/HCPCS: 64415; 23412; 23130; 93005; A9270; C1713; J0690; J1100; J1170; J2250; J2405; J2704; J2710; J3010; J7120

== ENCOUNTER 2021-03-10 09:01 | Outpatient (CLI) | payer MEDICARE, OTHER, SELFPAY ==
--- NOTE | ~2021-03-10 | XR_ITS ---
XR abdomen/kub 1V 03/10/2021 09:25 Indication: Renal stones Procedure: KUB Comparison: 01/17/2020 Findings: There are multiple bilateral renal stones, largest in the right kidney. Bowel gas pattern i s nonobstructive. There are cholecystectomy clips. There is right total hip arthroplasty. There are s table pelvic phleboliths. Impression: 1: Bilateral nephrolithiasis. Reviewed, dictated and finalized at location B. BLEACHER Impression: 1: Bilateral nephrolithiasis.
== END 2021-03-10 09:02 | disposition home or self-care (01) ==
PROVIDERS: PCP Family Medicine; Visit Provider Urology
DX: N20.0 Calculus of kidney (principal)
CPT/HCPCS: 74018

== ENCOUNTER 2021-03-23 10:42 | Outpatient (CLI) | payer MEDICARE, OTHER, SELFPAY ==
[2021-03-23 11:57] LABS: Prothrombin Time 12.8 Seconds (11.1-14.7)
[2021-03-23 11:58] LABS: Partial Thromboplastin Time 30.1 SECONDS (22.3-36.8)
== END 2021-03-23 10:43 | disposition home or self-care (01) ==
LOC: ANHSURGERY 10:46
PROVIDERS: PCP Family Medicine; Visit Provider Urology
DX: N20.0 Calculus of kidney (principal); Z01.818 Encounter for other preprocedural examination
CPT/HCPCS: 36415; 85610; 85730; 87086

== ENCOUNTER 2021-03-27 01:43 | Day surgery (SDC) | payer MEDICARE, OTHER, SELFPAY ==
[2021-03-18 14:15] VITALS: BMI 42.5
--- NOTE | 2021-03-18 14:29 | PC.NURSE ---
Report to the Outpatient Waiting Room, entrance under the green pavilion located off [facility], at time __7:30AM on date __03/27/21 . OR Time: ___9:30AM . - You will be asked a series of questions to screen for COVID 19 for your protection. - A mask is required within the hospital. - No visitors are allowed at this time. Preoperative COVID Testing Requirements: No COVID Test needed if: (proof is required; if not received patient will have Rapid Test prior to entry) - Patient has received COVID Vaccine at least 14 days prior to procedure date or - Patient has positive COVID test result within last 90 days of surgery date. COVID Test needed if above criteria is not met If not COVID vaccinated a COVID test must be conducted within 72 hours of surgery and patient is asked to isolate self from time of testing until procedure. You will go to the [facility] for your COVID testing. The [facility] site is located at the corner of [address] [facility]. You will only be called if COVID results are positive and your surgeon may reschedule your elective surgery date. Patients may have clear liquids (water, carbonated beverages, clear teas, apple juice) until 3 hours prior to surgery with a maximum of 20 ounces. - No food from midnight until time of surgery - Infants may have breast milk until 4 hours before surgery, infant formula 6 hours prior to surgery. - Children will be allowed to drink immediately following surgery. If applicable, please bring a bottle or sippy cup to assist with drinking. Juice, water, soda, and popsicles are readily available. For infants on formula, please bring formula the day of surgery. Pacifiers are allowed. Take the following medications with a SIP of water the morning of surgery: ___HYDROCODONE NEEDED Medications to discontinue per physician NONE Date to take last dose Please no make-up, nail monegasque, hairspray, perfume, deodorant, or body powder the day of surgery. No jewelry (including any body piercings) or valuables the day of surgery, leave them at home. Please take a shower or bath the night before, or the morning of, surgery with an antibacterial soap. Wear comfortable, loose fitting clothing. Children are encouraged to wear pajamas. - Jewelry must be removed prior to entering the operating room. Rings and piercings that are not removed may be cut off. - The hospital will not accept responsibility for valuables. - Please leave all valuables, including medications, at home the day of surgery. If you are going home after surgery, a licensed dedicated driver must drive you home. - NO public transportation without another adult. - We recommend that an adult stay with you for 24 hours following discharge. - We also recommend that you do not drive, make important decision, drink alcoholic beverages, or take any drugs that were not prescribed by your health care provider for at least 24 hours after your discharge time. For Pediatric surgeries, we recommend two adults accompany the child home (only one inside the building at this time). Follow any additional instructions given to you from your surgeon. Telephone instructions given to ___PATIENT and asked if any additional questions and then verbalized understanding. Patient advised to call surgeon office or pre surgery nurse liaison [phone] if any additional questions.
[2021-03-27] VITALS (7 sets, daily range): BP systolic 120–141; BP diastolic 72–90; PULSE 62–76; RESP 10–18; TEMP 36.2; O2SAT 92–99
--- NOTE | ~2021-03-27 | XR_ITS ---
EXAMINATION: XR abdomen/kub 1V EXAM DATE: 03/27/2021 07:46 INDICATION: LITHO ESWL TECHNIQUE: Frontal projection(s) of the abdomen for interpretation. Comparison is made to prior exami nation from 01/17/2020. FINDINGS: Identification of bilateral nephrolithiasis. Larger stone burden on the right. Cholecystec uriel clips. Right hip arthroplasty. Mild to moderate bony degenerative changes. Nonobstructive bowel gas pattern. IMPRESSION: Bilateral nephrolithiasis. Reviewed, dictated and finalized at location B. SITTER IMPRESSION: Bilateral nephrolithiasis.
--- NOTE | 2021-03-27 06:34 | WPDHPUPDATE1 ---
History and Physical Update Update Date/Time: 03/27/21 06:34 History and Physical has been reviewed, including an updated exam of the patient. There are NO changes in the patient's condition. Risks, benefits, and alternatives have been discussed and questions answered. Patient agrees to proceed with procedure.
--- NOTE | 2021-03-27 08:09 | WPDANESEPPF ---
Anes - Initial Pre Proc Eval Procedure: Operation Date: 03/27/21 09:30 Proposed Procedures p Right Extracorporeal Shock Wave Lithotripsy - Marvin Sagastume MD Date/Time: 03/27/21 08:09 Surgeon: Marvin Sagastume MD Pre Op Diagnosis: right stone Patient Data Age: 65 Gender: M Height: 1.7 m Weight: 122.5 kg Last Vital Signs Temp 36.2 C L 03/27/21 07:57 Pulse 73 03/27/21 07:57 Resp 16 03/27/21 07:57 BP 128/72 03/27/21 07:57 Pulse Ox 95 03/27/21 07:57 Allergies Allergy/AdvReac Type Severity Reaction Status Date / Time No Known Allergies Allergy Verified 03/27/21 08:00 Home Medications Medication Instructions Recorded Confirmed Type enalapril maleate 10 mg PO QNOON 03/06/19 03/27/21 History finasteride 5 mg PO QNOON 03/06/19 03/27/21 History rosuvastatin 10 mg PO QNOON 03/06/19 03/27/21 History diclofenac sodium 75 mg PO HS PRN 11/13/19 03/27/21 History hydrocodone-acetaminophen 1 tablet PO Q4-6H PRN 03/18/21 03/27/21 History tamsulosin 0.4 mg PO DAILY PRN 03/18/21 03/27/21 History CoQ-10 1 tab-cap PO DAILY 03/27/21 03/27/21 History One A Day 1 tab-cap PO DAILY 03/27/21 03/27/21 History Patient hx anesthesia problems: none Family hx anesthesia problems: none Results Review: All pre-operative results and documents have been reviewed as part of the pre-operative evaluation. [facility] Past Medical History Medical History Arthritis Depression Hyperlipidemia Hypertension Osteoarthritis Renal stones Surgical History Surgical History History of appendectomy (~2015) History of hernia surgery (~2015) 2016 History of lithotripsy History of total hip arthroplasty (~2015) 2016 S/P right rotator cuff repair 12/12/20 Family History Family History Other Family history of arthritis Family history of high cholesterol Hypertension Social History Social History (Updated 03/02/21 @ 10:08 by Brandi Salidvar MA) Smoking status: Never smoker Alcohol intake: former Alcohol use details: SOCIAL DRINKER IN PAST Substance use: never Substance use type: does not use Living arrangements: with family Additional living arrangements comments: Gender identity (if verbalized by the patient): Male Spiritual care concerns: No Anes - Eval Final PreProcedure Day of Procedure 03/27/21 08:09 Patient weight: morbidly obese Heart: regular rate and rhythm Lungs: clear to auscultation and normal air movement Airway: Mallampati scale class II Neurological: alert and oriented Last oral intake: >/= 8 hours ASA classification: III Emergent: no Anesthetic plan: proceed Anesthesia type and monitoring: general LMA and standard monitoring Results Review: All pre-operative results and documents have been reviewed as part of the pre-operative evaluation. Informed Consent: The patient's anesthetic plan and its attendant risks and benefits were discussed with the patient/family/POA. Questions were solicited and answers provided to the satisfaction of the patient/family/POA.
[2021-03-27] MEDS: LACTATED RINGERS 1,000 ML 30 ML IV CONT (08:59)
[2021-03-27] MEDS: ceFAZolin 3 GM/D5W 100 ML 100 ML IVPB (09:02)
--- NOTE | 2021-03-27 09:35 | W.PM.PROC2 ---
Procedure Note - Detailed Date of Procedure 03/27/21 Pre-op Diagnosis Right renal stone Post-op Diagnosis same Procedure Performed Right ESWL Surgeon Marvin Sagastume MD Anesthesia general Description of Procedure The patient was brought to the operative suite where he was placed in the supine position on the Dornier lithotripsy table. The focal point of the lithotripter was placed at a 8mm right upper pole renal calculus. A total of 2500 shocks were delivered at a power setting of 4. There appeared to be good fragmentation of the stone. The patient tolerated the procedure well and was taken to the recovery room in good condition. Drains No Packing No Pathology none sent Complications No immediate complications Condition stable Disposition PACU
== END 2021-03-27 11:35 | disposition home or self-care (01) ==
PROVIDERS: PCP Family Medicine; Visit Provider Urology
PROC: (CPT 50590; principal; 2021-03-27 09:30)
DX: N20.0 Calculus of kidney (principal); I10 Essential (primary) hypertension; E78.5 Hyperlipidemia, unspecified; M19.90 Unspecified osteoarthritis, unspecified site; F32.9 Major depressive disorder, single episode, unspecified; E66.01 Morbid (severe) obesity due to excess calories; Z68.41 Body mass index [BMI] 40.0-44.9, adult
CPT/HCPCS: 50590; 74018; J0690; J1100; J2405; J2704; J3010; J7120

== ENCOUNTER 2021-04-07 16:52 | Outpatient (CLI) | payer MEDICARE, OTHER, SELFPAY ==
--- NOTE | ~2021-04-07 | XR_ITS ---
EXAMINATION: XR abdomen/kub 1V INDICATION: Calculus of the kidney TECHNIQUE: Supine views of the abdomen were obtained on 2 radiographs. COMPARISON: 03/27/2021 FINDINGS: Stones of the right kidney lower pole measure 9 mm, 8 mm, 7 mm, and 5 mm. There are multipl e punctate stones left kidney which measure up to 5 mm. No stones are identified along the expected c ourses of the ureters or urinary bladder. There are phleboliths of the pelvis. Changes of total right hip arthroplasty are noted. Surgical clips in the right upper quadrant are likely from prior cholecy stectomy. The bowel gas pattern is normal. IMPRESSION: 1. Unchanged bilateral nephrolithiasis. Reviewed, dictated and finalized at location A. FOLIO ANALYST
== END 2021-04-07 16:53 | disposition home or self-care (01) ==
PROVIDERS: PCP Family Medicine; Visit Provider Urology
DX: N20.0 Calculus of kidney (principal)
CPT/HCPCS: 74018

== ENCOUNTER 2021-05-14 11:02 | Outpatient (CLI) | payer MEDICARE, OTHER, SELFPAY ==
--- NOTE | ~2021-05-14 | XR_ITS ---
XR hand BI arthritis min 3V DATE: 05/14/2021 12:39 INDICATION: Bilateral hand pain. Multiple joint pain. Osteoarthritis. TECHNIQUE: 4 views of each hand COMPARISON: None FINDINGS: There are osteoarthritic changes involving particularly the first carpometacarpal and first through fourth metacarpophalangeal joints bilaterally. No erosive change is noted. No fracture, dislocation, periosteal reaction or bone destruction. IMPRESSION: Polyarticular osteoarthritis Reviewed, dictated and finalized at location A.
--- NOTE | ~2021-05-14 | XR_ITS ---
XR foot RT standing 2V DATE: 05/14/2021 12:39 INDICATION: Multiple joint pain. Osteoarthritis. TECHNIQUE: Standing AP and lateral views COMPARISON: None FINDINGS: There is joint space narrowing and mild spurring at the first metatarsophalangeal joint con sistent with osteoarthritis. Chronic small ossicle at the medial aspect of the fifth metatarsophalangeal joint. No erosive change is noted. No fracture or dislocation, periosteal reaction or bone destruction. IMPRESSION: Osteoarthritis at first metatarsophalangeal joint Reviewed, dictated and finalized at location A.
--- NOTE | ~2021-05-14 | XR_ITS ---
XR foot LT standing 2V DATE: 05/14/2021 12:39 INDICATION: Left foot pain. Osteoarthritis. TECHNIQUE: Standing AP and lateral views COMPARISON: None FINDINGS: There is joint space narrowing and spurring at the first metatarsophalangeal joint consiste nt with moderate osteoarthritis. No fracture, dislocation, periosteal reaction or bone destruction. IMPRESSION: First metatarsophalangeal joint osteoarthritis Reviewed, dictated and finalized at location A.
--- NOTE | ~2021-05-14 | XR_ITS ---
XR sacroiliac joints min 3V DATE: 05/14/2021 12:39 INDICATION: Pain TECHNIQUE: AP and oblique views COMPARISON: 11/04/2019 CT abdomen pelvis FINDINGS: No sacral fracture or bone destruction is evident. The left sacroiliac joint appears intact . There may be partial ankylosis at the right sacroiliac joint. 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 Reviewed, dictated and finalized at location A.
--- NOTE | ~2021-05-14 | XR_ITS ---
XR lumbar spine min 4V DATE: 05/14/2021 12:39 INDICATION: Back pain TECHNIQUE: AP, lateral, bilateral oblique views and coned lateral lumbosacral view COMPARISON: None FINDINGS: Status post right total hip arthroplasty. Status post cholecystectomy. Normal alignment of the lumbar spine. No fracture or bone destruction, spondylolysis or spondylolisth esis is evident. There is fusion at L5-S1 intervertebral disc spaces. There is diffuse idiopathic skeletal hyperostosis of the lower thoracic and upper lumbar spine. . Partial fusion of the right sacroiliac joint. Left sacroiliac joint appears unremarkable. Bilateral nephrolithiasis. Bilateral nephrolithiasis. IMPRESSION: Fusion at L5-S1 Diffuse idiopathic skeletal hyperostosis of the thoracolumbar spine Reviewed, dictated and finalized at location A.
[2021-05-14 12:14] LABS: Alanine Aminotransferase 41 U/L (4-50); Albumin Level 4.7 g/dL (3.5-5.1); Alkaline Phosphatase 86 U/L (38-126); Anion Gap 11 mmol/L (8-16); Aspartate Amino Transferase 40 U/L (17-59); Bilirubin,Total 0.6 mg/dL (0.2-1.3); Blood Urea Nitrogen 22 mg/dL (9-20); CRP < 0.5 mg/dL (<1.0); Calcium 9.4 mg/dL (8.4-10.2); Carbon Dioxide 26 mmol/L (22-30); Chloride 103 mmol/L (98-107); Estimated Glomerular Filt Rate > 60; Glucose 108 mg/dL (65-110); Potassium 4.3 mmol/L (3.4-5.0); Sodium 140 mmol/L (137-145); Uric Acid 6.5 mg/dL (3.5-8.5)
[2021-05-14 12:17] LABS: Appearance Urine Clear (Clear); Bilirubin Urine Negative (Negative); Blood Urine Negative (Negative); Color Urine Yellow (Yellow); Glucose Urine UA Negative (Negative); Ketones Urine Negative (Negative); Leukocyte Esterase Ur Negative LEU/UL (NEGATIVE); Nitrate Urine Negative (Negative); Protein Urine Negative (Negative); Specific Grav Ur >= 1.030 (1.001-1.035); Urobilinogen Urine 0.2 mg/dL (<2.0)
[2021-05-14 12:31] LABS: Mucus Urine Rare /lpf; RBC Urine 0-2 /hpf (0-2); Squamous Epithelial Cell Urine Occasional /hpf (Few); WBC Urine 0-3 /hpf (0-3)
[2021-05-14 12:40] LABS: Add Urine Microscopic? YES
[2021-05-14 12:42] LABS: Thyroid Stimulating Hormone 0.752 uIU/mL (0.465-4.680)
[2021-05-14 12:47] LABS: Complement C3 132 mg/dL (88-165)
[2021-05-14 14:17] LABS: Basophils Absolute Auto 0.1 K/mm3 (0.0-0.1); Basophils Percent Auto 0.8 % (0.2-1.2); Eosinophils Absolute Auto 0.2 K/mm3 (0-0.3); Eosinophils Percent Auto 1.8 % (0-4.4); Hematocrit 46.5 % (42.0-52.0); Hemoglobin 15.7 g/dL (14.0-18.0); Immature Granulocyte Absolute 0.04 K/mm3 (0.00-0.031); Immature Granulocyte Percent A 0.5 % (0-0.5); Lymphocytes Percent Auto 23.8 % (18.3-44.2); Mean Corpuscular HGB Conc 33.8 g/dl (32-36); Mean Corpuscular Hemoglobin 32.8 pg (26-34); Mean Corpuscular Volume 97.1 fl (80-100); Mean Platelet Volume 9.2 fl (7.4-10.4); Monocytes Absolute Auto 0.5 K/mm3 (0.1-0.6); Monocytes Percent Auto 5.7 % (2.6-8.5); Neutrophils Absolute Auto 5.7 K/mm3 (1.3-6.7); Neutrophils Percent Auto 67.4 % (45.5-73.1); Platelet Count Result 233 k/mm3 (150-375); Red Blood Count 4.79 M/mm3 (4.6-6.20); White Blood Count 8.4 K/mm3 (4.5-10.0)
[2021-05-14 14:46] LABS: Erythrocyte Sedimentation Rate 12 mm/hr (0-20)
[2021-05-14 21:23] LABS: T4 Thyroxine 7.73 ug/dL (5.53-11.0)
[2021-05-17 03:14] LABS: Thyroid Peroxidase Antibodies <1 IU/mL (<9)
[2021-05-17 13:38] LABS: Lupus dRVVT 1:1 Mix Interpreta Not Indicated; Lupus dRVVT Screen 30 sec (<=45); PTT-LA Screen 31 sec (<=40)
[2021-05-18 09:49] LABS: SS-A <1.0; SS-B <1.0
[2021-05-19 20:50] LABS: SM Antibody <1.0; SM/RNP Antibody <1.0
[2021-05-20 14:29] LABS: Complement Total CH50 >60 U/mL (31-60)
== END 2021-05-14 11:03 | disposition home or self-care (01) ==
PROVIDERS: PCP Family Medicine; Visit Provider Internal Medicine
DX: M19.071 Primary osteoarthritis, right ankle and foot (principal); Z51.81 Encounter for therapeutic drug level monitoring; Z79.899 Other long term (current) drug therapy; M19.042 Primary osteoarthritis, left hand; M19.041 Primary osteoarthritis, right hand; M19.072 Primary osteoarthritis, left ankle and foot; M18.0 Bilateral primary osteoarthritis of first carpometacarpal joints; Z96.641 Presence of right artificial hip joint; Z98.1 Arthrodesis status; M48.15 Ankylosing hyperostosis [Forestier], thoracolumbar region; N20.0 Calculus of kidney
CPT/HCPCS: 36415; 72110; 72202; 73130; 73620; 80053; 81001; 84436; 84443; 84550; 85025; 85613; 85652; 85730; 86140; 86160; 86162; 86225; 86235; 86376; 87086; 87088

== ENCOUNTER 2021-07-21 08:48 | Outpatient (CLI) | payer MEDICARE, OTHER, SELFPAY ==
--- NOTE | ~2021-07-21 | XR_ITS ---
XR knee LT min 4V DATE: 07/21/2021 09:21 INDICATION: Chronic left knee pain, instability TECHNIQUE: Salyer, lateral and weightbearing AP and PA views COMPARISON: None FINDINGS: There is moderate loss of height at the medial compartment. Subtle chondrocalcinosis is suggested at the medial compartment. There is periarticular spurring at the patellofemoral joint. Hypertrophic change of the medial tibial spine. No fracture or dislocation or joint effusion. No periosteal reaction or bone destruction. No radiopaq ue intra-articular loose body is detected. IMPRESSION: Moderate medial and patellofemoral compartment osteoarthritis Reviewed, dictated and finalized at location A.
== END 2021-07-21 08:49 | disposition home or self-care (01) ==
LOC: CHSIMG 08:51
PROVIDERS: PCP Family Medicine; Visit Provider Orthopaedic Surgery
DX: M17.12 Unilateral primary osteoarthritis, left knee (principal); M25.562 Pain in left knee
CPT/HCPCS: 73564

== ENCOUNTER 2021-09-22 11:09 | Outpatient (CLI) | payer MEDICARE, OTHER, SELFPAY ==
--- NOTE | ~2021-09-22 | XR_ITS ---
XR abdomen/kub 1V 09/22/2021 11:25 Indication: Renal stone Procedure: KUB Comparison: Comparison to multiple prior studies sequentially, with oldest reviewed study dated 04/2019. Findings: There are bilateral renal stones. There are cholecystectomy clips. There are pelvic phlebol iths. Bowel gas pattern nonobstructive. There is a right hip arthroplasty. Impression: 1: Bilateral nephrolithiasis. Reviewed, dictated and finalized at location A. Impression: 1: Bilateral nephrolithiasis.
== END 2021-09-22 11:10 | disposition home or self-care (01) ==
PROVIDERS: PCP Family Medicine; Visit Provider Urology
DX: N20.0 Calculus of kidney (principal)
CPT/HCPCS: 74018

== ENCOUNTER 2022-04-09 07:35 | Outpatient (CLI) | payer MEDICARE, OTHER, SELFPAY ==
--- NOTE | ~2022-04-09 | XR_ITS ---
XR abdomen/kub 1V 04/09/2022 07:59 Indication: Right-sided kidney stones Procedure: KUB Comparison: Comparison to multiple prior studies sequentially, with oldest reviewed study dated 03/10. Findings: There are cholecystectomy clips. There are bilateral renal stones. There is nonobstructive bowel gas pattern. There are pelvic phleboliths. There is a right hip arthroplasty. Mild-moderate lum bar spondylosis. Impression: 1: Stable bilateral nephrolithiasis. Reviewed, dictated and finalized at location B. IAL INSPECTOR Impression: 1: Stable bilateral nephrolithiasis.
== END 2022-04-09 07:36 | disposition home or self-care (01) ==
LOC: CHSIMG 07:41
PROVIDERS: PCP Family Medicine; Visit Provider Urology
DX: N20.0 Calculus of kidney (principal)
CPT/HCPCS: 74018

== ENCOUNTER 2022-10-04 11:57 | Outpatient (CLI) | payer MEDICARE, OTHER, SELFPAY ==
--- NOTE | ~2022-10-04 | XR_ITS ---
EXAMINATION: XR abdomen/kub 1V INDICATION: Right-sided kidney stone TECHNIQUE: Supine views of the abdomen were obtained on 2 radiographs. COMPARISON: 04/09/2022 FINDINGS: There are stable stones measuring 4 mm and 3 mm in the left kidney upper pole. There appear s to be interval treatment or passage of a stone previously seen in the left kidney lower pole. There are multiple small stones of the right kidney which measure up to 7 mm and appear unchanged. Surgica l clips in the right upper quadrant are likely from prior cholecystectomy. The lung bases are clear. There are changes of right total hip arthroplasty. IMPRESSION: 1. Interval treatment or passage of a stone previously identified in the left kidney lower pole. 2. Bilateral nephrolithiasis. Reviewed, dictated and finalized at location A. IMPRESSION: 1. Interval treatment or passage of a stone previously identified in the left k idney lower pole. 2. Bilateral nephrolithiasis.
== END 2022-10-04 11:58 | disposition home or self-care (01) ==
LOC: CHSIMG 11:59
PROVIDERS: PCP Family Medicine; Visit Provider Urology
DX: N20.0 Calculus of kidney (principal)
CPT/HCPCS: 74018

== ENCOUNTER 2023-04-18 07:50 | Outpatient (CLI) | payer MEDICARE, OTHER, SELFPAY ==
--- NOTE | ~2023-04-18 | XR_ITS ---
EXAMINATION: XR abdomen/kub 1V INDICATION: Nephrolithiasis TECHNIQUE: Supine views of the abdomen were obtained on 2 radiographs. COMPARISON: 10/04/2022 FINDINGS: There are two stable stones of the left kidney upper pole. There are multiple stable stones of the right kidney which measure up to 8 mm. No stones are identified along the expected courses of the ureters or in the urinary bladder. There are phleboliths of the pelvis. The bowel gas pattern is normal. Changes of right total hip arthroplasty are noted. Surgical clips in the right upper quadran t are likely from prior cholecystectomy. IMPRESSION: 1. Stable bilateral nephrolithiasis. Reviewed, dictated and finalized at location B. RANCE LOSS CONTROL SURVEYOR
== END 2023-04-18 07:51 | disposition home or self-care (01) ==
LOC: CHSIMG 07:53
PROVIDERS: PCP Family Medicine; Visit Provider Urology
DX: N20.0 Calculus of kidney (principal)
CPT/HCPCS: 74018

== ENCOUNTER 2023-09-27 12:42 | Outpatient (CLI) | payer MEDICARE, OTHER, SELFPAY ==
--- NOTE | ~2023-09-27 | XR_ITS ---
3 VIEWS LUMBAR SPINE Ordering provider: Osvaldo Arnold, PARomi History: . back surgery 25 yrs ago . Comparison: None. FINDINGS: VERTEBRAL BODIES:Loss of height is seen in T12 most likely chronic. No visible fracture or subluxati on. Degenerative changes of the spine. DISK SPACES: Narrowing of the disc L5-S1. SOFT TISSUES: Normal. Right hip arthroplasty. Left hip osteoarthritic changes. Bilateral sacroiliacs. IMPRESSION: No acute osseous abnormality lumbar spine. Bilateral sacroiliitis. Degenerative disc disease at the level of L5-S1. Reviewed, dictated and finalized at location A.
== END 2023-09-27 12:43 | disposition home or self-care (01) ==
LOC: CHSIMG 12:44
PROVIDERS: PCP Family Medicine; Visit Provider Physician Assistant
DX: M54.50 Low back pain, unspecified (principal); M46.1 Sacroiliitis, not elsewhere classified; M51.37 Other intervertebral disc degeneration, lumbosacral region
CPT/HCPCS: 72100

== ENCOUNTER 2023-10-01 07:35 | Outpatient (CLI) | payer MEDICARE, OTHER, SELFPAY ==
--- NOTE | ~2023-10-01 | MR_ITS ---
EXAMINATION: MR lumbar spine wo con DATE: 10/01/2023 08:35 INDICATION: Low back pain TECHNIQUE: Magnetic resonance imaging (MRI) of the lumbar spine was performed without intravenous con trast. Sequences included sagittal T2-weighted FSE, sagittal T2-weighted FS FSE, sagittal T1-weighted FSE, and axial T2-weighted FSE. COMPARISON: None FINDINGS: 3 mm retrolisthesis L4 on L5. There is chronic L5-S1 anterior spinal fusion without instrumentation. Vertebral body heights are normal. Mild fibrofatty degenerative endplate change on the anterior infer ior endplate of T12. Marrow signal is otherwise normal. Mild disc height loss at L2-L3 and L3-L4. The re are annular fissures at L3-L4 and L4-L5.. The conus medullaris terminates at L1-L2. There is chung l signal in the caudal spinal cord. Paravertebral soft tissues are unremarkable. The following disc l evels are specifically discussed: T12-L1: The disc does not extend beyond the endplate margin. There is mild bilateral facet joint oste oarthritis. There is no neural foraminal stenosis. There is no central canal stenosis. L1-L2: The disc does not extend beyond the endplate margin. There is mild left and moderate right fac et joint osteoarthritis. There is no neural foraminal stenosis. There is no central canal stenosis. L2-L3: Disc is mildly bulging. There is hypertrophy of the ligamentum flavum. There is mild to modera te left and moderate right facet joint osteoarthritis. There is mild bilateral neural foraminal steno sis. There is mild central canal stenosis. L3-L4: Disc is bulging with superimposed central to left paracentral disc extrusion with disc materia l extending up to 4 mm cephalad to the level of the inferior endplate of L3. There is hypertrophy of the ligamentum flavum. There is moderate right and severe left facet joint osteoarthritis. There is m oderate bilateral neural foraminal stenosis. There is moderate to severe central canal stenosis with minimal CSF signal amongst the centrally clustered nerve roots. L4-L5: Disc is bulging with superimposed annular fissure and left paracentral disc extrusion with dis c material extending up to 3 mm caudal to the level of the superior endplate of L5. There is mild lef t and moderate right facet joint osteoarthritis. There is moderate bilateral neural foraminal stenosi s. There is mild to moderate central canal stenosis with narrowing of the lateral recesses, left grea ter than right. L5-S1: The disc space is fused. There is moderate bilateral facet joint osteoarthritis. There is mode rate bilateral neural foraminal stenosis. There is no central canal stenosis. IMPRESSION: 1. Mild lumbar spondylosis with chronic anterior fusion at L5-S1. This most notable for a disc extrus ion at L3-L4 resulting in moderate to severe central canal stenosis. Reviewed, dictated and finalized at location A. IMPRESSION: 1. Mild lumbar spondylosis with chronic anterior fusion at L5-S1. This most not able for a disc extrusion at L3-L4 resulting in moderate to severe central nora l stenosis.
== END 2023-10-01 07:36 | disposition home or self-care (01) ==
LOC: CHSIMG 07:36
PROVIDERS: PCP Family Medicine; Visit Provider Physician Assistant
DX: M54.50 Low back pain, unspecified (principal); M43.06 Spondylolysis, lumbar region; M43.27 Fusion of spine, lumbosacral region; M48.07 Spinal stenosis, lumbosacral region
CPT/HCPCS: 72148

== ENCOUNTER 2024-04-17 09:15 | Outpatient (CLI) | payer MEDICARE, OTHER, SELFPAY | END 2024-04-17 09:16 | disposition home or self-care (01) | PROVIDERS: PCP Family Medicine; Visit Provider Urology | DX: N20.0 Calculus of kidney (principal) | CPT/HCPCS: 74018 ==

== ENCOUNTER 2024-07-24 09:04 | Outpatient (CLI) | payer MEDICARE, OTHER, SELFPAY ==
--- OUTSIDE RECORDS SUMMARY | 2024-07-24 09:36 | XMS_ITS | Data Portability ---
Author Organization [facility], [address] [place] [address] Neurology ([place]) Address [address] [address] Care Team Providers Care Sugar Cane Planter Name Role Phone JOYA MAHAN Primary Care Provider [phone] Assessment Encounter Date Assessment Date Assessment LastModified by Organization Details LastModified Time 11/17/2023 11/17/2023 IMPRESSION: Anterior L5-S1 lumbar fusion without any instrumentation with recurrence of the pain secondary to moderate to severe stenosis at L3-L4 with CSF almost disappearing. Also, mild to moderate stenosis at L4-L5 and mild stenosis at L2-L3. There was also disc protrusions more toward the left at L3-L4 and L4-L5. MANAGEMENT PLAN: I have discussed with him various options. Initially, he thought that he would like to see the surgeon and he thought he was coming to see the surgeon and I have explained to him that we do non-surgical measures and we are neurologists. We will be happy to send him to a surgeon orthopedic or a neurosurgeon downstairs. He finally, after discussion, decided to try the injections, as they have helped him before. We will proceed with steroid injection at L3-L4, given on both sides if needed under fluoroscopic guidance. If one injection does not help, I would not recommend any further. He says he has very little pain at the moment, but the moment he starts doing any active work, it becomes quite severe, and also he has a problem at nighttime. When he wakes up, he has to slowly move around. patricio lama Not available 11/17/2023 22:07:20 Plan of Treatment Reminders Order Date Submit Date Provider Last Modified By Organization Details Last Modified Time Details Appointments None record ed. Lab None record ed. Referral None record ed. Procedures None record ed. Surgeries None record ed. Imaging None record ed. Medication Orders None record ed. Patient TargetsNo targets recorded. Patient InstructionsNo instructions recorded. Reason for Referral None Reported. Results Created Date Observation Date Name Description Value Unit Range Abnormal Flag Note LastModifiedBy Organization Detail LastModifiedTime 11/23/19 24 11/23/2023 lee newell se, blood Blood Glucose: mg/dl 114 Not Available Admini strativ e Office ([place]) [address] [place] [address], [phone], 11/23/2023 11:25:04 02/15/19 25 10/01/2023 MRI, lumba r spine , w/o contr ast No observ ation record ed. [email or web address] Not Available 2024 09:38:14 Result Notes None recorded. Problems Name Problem SNOMED Code Status Onset Date Resolution Date Notes Provider Name and Address Organization Details Recorded Time Lumbar radiculopathy 397665719 Active 2023 Rocco Guerin [facility] 4 12:24:42 Low back pain 974683025 Active 2023 Ren Greene [facility] 4 04:45:04 Problem Notes None recorded. Procedures Surgical History Date Name Laterality Status Provider Name and Address Organization Details Recorded Time ID Operative Report completed Gracie Dawson MD [address] [place] [address], [phone], [facility] 11/23/2023 11:45:45 Imaging Results None recorded. Procedure Notes None recorded. Medical Equipment None Reported. Allergies No known drug allergies Medications Name Sig Start Date Stop Date Status Note LastModified by Organization Details LastModified Time losartan 50 mg tablet TAKE 1 TABLET BY MOUTH ONCE DAILY active Not Available Not Available No t Available enalapril maleate 10 mg tablet TAKE 1 TABLET BY MOUTH ONCE DAILY 11/16 completed Not Available Not Available Not Available sildenafil 50 mg tablet TAKE 1 TO 2 TABLETS BY MOUTH NEEDED 11/16 completed Not Available Not Available Not Available testosteron e cypionate 100 mg/mL intramuscul ar oil INJECT 1/2 (ONE-HALF ) ML INTRAMUSC ULARLY ONCE A WEEK 11/16 completed Not Available Not Available Not Available BD Regular Bevel [place] 18 gauge x 1 USE 1 SYRINGE ONCE A WEEK FOR DRAWING UP MEDICATIO N 11/16 completed Not Available Not Available Not Available BD Luer-Baljinder Syringe 3 mL 23 gauge x 1 1/2 USE 1 ONCE A WEEK 11/16 completed Not Available Not Available Not Available diclofenac sodium 75 mg tablet,delma yed release TAKE 1 TABLET BY MOUTH TWICE DAILY NEEDED active Not Available Not Available No t Available metformin ER 500 mg tablet,exte nded release 24 hr TAKE 1 TABLET BY MOUTH TWICE DAILY active Not Available Not Available No t Available finasteride 5 mg tablet TAKE 1 TABLET BY MOUTH ONCE DAILY active Not Available Not Available No t Available rosuvastati n 10 mg tablet TAKE 1 TABLET BY MOUTH ONCE DAILY active Not Available Not Available No t Available rosuvastati n 20 mg tablet TAKE 1/2 (ONE-HALF ) TABLET BY MOUTH ONCE DAILY active Not Available Not Available No t Available Hypodermic [place] 23 gauge x 1 1/2 USE 1 NEW NEEDLE ONCE A WEEK 11/16 completed Not Available Not Available Not Available Adult Aspirin Regimen 81 mg tablet,delma yed release Take 1 tablet every day by oral route. active Not Available Not Available No t Available Vitals Date Recorded Body weight Heart rate Respiratory rate Oxygen saturation Oxygen saturation in Arterial blood by Pulse oximetry Systolic blood pressure Diastolic blood pressure Provider Name and Address Organization Details Last Updated DateTime 4 148918. 05 g 62 /min 17 /min 97 % 97 % 150 mm[Hg] 94 mm[Hg] Siobhan Adriana [facility] 4 12:20:51 Social History None recorded. Functional Status None recorded. Mental Status None recorded. Family History Nothing Reported. Medical History No medical history recorded. Past Encounters Encounter ID Performer Location Encounter Start Date Encounter Closed Date Diagnosis/Indication Diagnosis SNOMED-CT Code Diagnosis ICD10 Code Diagnosis Note [id number] Gracie Dawson MD [address] Neurology ([place]) [address] [place] [phone] 11/17/2023 11:31:14 11/17/2023 17:14:44 Low back pain 796863626 M54.50 Additional diagnosis detail: Lumbar back pain [id number] Gracie Dawson MD [facility] Neurology ([place]) [address] [place] [address], [address] [place] [address] 11/23/2023 09:34:51 11/24/2023 09:57:09 Health Concerns Section Related Observation LastModified by Organization Karey saeed LastModified Time None Recorded Concern Status LastModified by Organization Details LastModified Time None Recorded Advance Directives Directive None Recorded Payers Insurance Date Sequence Insurance Name Policy Number Policy Sandoval Covered Member ID Sandoval Member ID Guarantor Name 11/23/2023 2 [facility] (INDEMNITY) Craig Caicedo [id number] Craig Caicedo 11/17/2023 1 [place] Craig Caicedo [id number] Craig Caicedo Notes Date Note Type Note Provider Name and Address Organization Details Recorded Time 11/17/2023 text/html 68 year old camilla navarrete who apparently is a prediabetic, having had L5-S1 anterior spinal fusion without instrumentation done in , having had a recurrence of the pain about 10 years ago with steroid injection in the back from [facility] helping, had this time 7 weeks back, started having a significant level of pain radiating into both legs and pain being more on the left, but the pain radiating into the right lower limb as well, has been sent for further evaluation and advice. He had an MRI scan already, which has shown moderate to severe central canal stenosis at L3-L4 that was also a left paracentral disc extrusion, disc material extending up 4 mm to the inferior endplate of L3. There is hypertrophy of the ligamentum flavum. Facetal osteoarthritis on the left. Minimal CSF signal only noted at L3-L4. There is also a left partial disc extrusion 3 mm caudal to the superior endplate L5 at L4-L5 and mild to moderate central stenosis as well. There is also mild stenosis at L2-L3. He has never had any strokes, seizures. No bladder or bowel problems. He has not tried any physical therapy. Apparently had 5 chiropractic times as well. Gracie Dawson MD [address] [place], [phone], [facility] 11/21/2023 10:52:20
[2024-07-24 09:42] LABS: Alanine Aminotransferase 22 U/L (6-50); Aspartate Amino Transferase 34 U/L (17-59)
== END 2024-07-24 09:05 | disposition home or self-care (01) ==
LOC: ANHLAB 09:09
PROVIDERS: PCP Family Medicine; Visit Provider Podiatrist Foot & Ankle Surgery
DX: B35.1 Tinea unguium (principal)
CPT/HCPCS: 36415; 84450; 84460

== ENCOUNTER 2024-08-14 15:21 | Outpatient (CLI) | payer MEDICARE, OTHER, SELFPAY ==
--- NOTE | ~2024-08-14 | XR_ITS ---
XR abdomen/kub 1V Ordering provider: Marvin Sagastume History: . kidney stones on right side . Comparison: None. FINDINGS: BOWEL: Nonobstructive bowel gas pattern. ORGANOMEGALY: None. SIGNIFICANT PATHOLOGIC CALCIFICATIONS: Bilateral kidney stones with the largest on the right side me asures 1.1 cm. OTHER: No free air is seen under the diaphragm. Right hip arthroplasty. Mild to moderate left hip osteoarthritic changes. Severe Narrowing of the rig ht sacroiliac joint. Degenerative spine. Pubic symphysitis. IMPRESSION: NO ACUTE ABDOMINAL FINDINGS. Bilateral kidney stones. Reviewed, dictated and finalized at location A.
--- OUTSIDE RECORDS SUMMARY | 2024-08-14 15:27 | XMS_ITS | Data Portability ---
Author Organization [facility], [address] [place] [address] Neurology ([place]) Address [address] [address] Care Team Providers Care Radio Interference Supervisor Name Role Phone JOYA MAHAN Primary Care Provider Assessment Encounter Date Assessment Date Assessment LastModified [...] 114 Not Available Admini strativ e Office ([place]) [address] [place] [address], [phone], 11/23/2023 11:25:04 02/15/19 25 10/01/2023 MRI, lumba r spine , w/o contr ast No observ ation record ed. [email or web address] Not Available 2024 09:38:14 Result Notes None recorded. Problems Name Problem SNOMED Code Status Onset Date Resolution Date Notes Provider Name and Address Organization Details Recorded Time Lumbar radiculopathy 852540769 Active 2023 Rocco Guerin [facility] 4 12:24:42 Low back pain 486568648 Active 2023 Ren Greene [facility] 4 04:45:04 Problem Notes None recorded. Procedures Surgical History Date Name Laterality Status Provider Name and Address Organization Details Recorded Time [place] Operative Report completed Gracie Dawson MD [address] [place] [address], [phone], [facility] 11/23/2023 11:45:45 Imaging Results None recorded. [...] Not Available Not Available BD Regular Bevel [place] 18 gauge x 1 USE 1 SYRINGE [...] Available Not Available No t Available Hypodermic [place] 23 gauge x 1 1/2 USE 1 [...] Address Organization Details Last Updated DateTime 4 024771. 05 g 62 /min 17 /min 97 % 97 % 150 mm[Hg] 94 mm[Hg] [facility] 4 12:20:51 Social History None recorded. Functional Status None recorded. Mental Status None recorded. Family History Nothing Reported. Medical History No medical history recorded. Past Encounters Encounter ID Performer Location Encounter Start Date Encounter Closed Date Diagnosis/Indication Diagnosis SNOMED-CT Code Diagnosis ICD10 Code Diagnosis Note [id number] Gracie Dawson MD 800 [facility] Neurology ([place]) [address] [place] [address],[address] [place] [phone] 11/17/2023 11:31:14 11/17/2023 17:14:44 Low back pain 996380626 M54.50 Additional diagnosis detail: Lumbar back pain [id number] Gracie Dawson MD [facility] Neurology ([place]) [address] [facility], [address] [place] [address] 11/23/2023 09:34:51 11/24/2023 09:57:09 Health Concerns Section Related Observation LastModified by Organization Detjayla ls LastModified Time None Recorded Concern Status LastModified by Organization Details LastModified Time None Recorded Advance Directives Directive None Recorded Payers Insurance Date Sequence Insurance Name Policy Number Policy Sandoval Covered Member ID Sandoval Member ID Guarantor Name 11/23/2023 2 [facility] (INDEMNITY) Craig Caicedo [id number] Craig Caicedo 11/17/2023 1 [place] Craig Caicedo [id number] Craig Caicedo Notes Date Note Type Note Provider Name and Address Organization Details Recorded Time 11/17/2023 text/html 68 year old camilla navarrete who apparently is a prediabetic, having had L5-S1 anterior spinal fusion without instrumentation done in , having had a recurrence of the pain about 10 years ago with steroid injection in the back from [facility] helping, had this time 7 [...] as well. Gracie Dawson MD [address] [place] [address], [phone], [facility] 11/21/2023 10:52:20
== END 2024-08-14 15:22 | disposition home or self-care (01) ==
LOC: CHSIMG 15:25
PROVIDERS: PCP Family Medicine; Visit Provider Urology
DX: N20.0 Calculus of kidney (principal)
CPT/HCPCS: 74018

== ENCOUNTER 2024-12-11 13:57 | Outpatient (CLI) | payer MEDICARE, OTHER, SELFPAY ==
--- NOTE | ~2024-12-11 | XR_ITS ---
Examination: XR chest 2V Clinical History: Pre Op Testing Comparison: None Technique: PA and Lateral Findings: Cardiomediastinal silhouette normal size and configuration. Lungs clear. No acute bony abnormality. IMPRESSION: 1. No acute cardiopulmonary findings. Reviewed, dictated and finalized at location R.
--- OUTSIDE RECORDS SUMMARY | 2024-12-11 16:17 | XMS_ITS | Encounter Summary ---
Author Organization [facility] Address [address] [place] [id number] Care Team Providers Care Lens Hardener Name Role Phone Brian Bishop MD Primary Care Provider [phone] Bhavin Carson MD Primary Care Provider Encounter Details Date Type Department Care Team (Late st Contact Info) Description 07/22/2018 Abstract SFL CONVERSION [address] [place] [address] , Generic Conversion, Social History Tobacco Use Types Packs/Day Years Used Date Smoking Tobacco: Never Smokeless Tobacco: Never Alcohol Use Standard Drinks/Week Comments No 0 (1 standard drink = 0.6 oz pur e alcohol) Sex and Gender Information Value Date Recorded Sex Assigned at Male 03/25/2024 11:56 AM FORKLIFT OPERATOR Legal Sex Male 10:30 PM FORKLIFT OPERATOR Gender Identity Not on file Sexual Orientation Not on file 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
--- OUTSIDE RECORDS SUMMARY | 2024-12-11 16:17 | XMS_ITS | Clinical Summary ---
Author Organization 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 12/20/2016 Active finasteride 5 MG tablet Take 1 tablet (5 mg total) by mouth daily. 7 11/06/2018 Active diclofenac EC 75 MG tablet Take 1 tablet (75 mg total) by mouth daily as needed. Active rosuvastatin 10 MG tablet Take 1 tablet (10 mg total) by mouth nightly at bedtime. Active losartan (COZAAR) 50 MG tablet Take 1 tablet (50 mg total) by mouth daily. Active aspirin 81 MG chewable tablet Chew 1 tablet (81 mg total) by mouth daily. Active Multiple Vitamins-Minera ls (CENTRUM SILVER 50+MEN OR) Active metFORMIN (GLUCOPHAGE) 500 MG tablet Take 1 tablet (500 mg total) by mouth daily with breakfast. Active gabapentin (NEURONTIN) 100 MG capsule Take 1 capsule (100 mg total) by mouth 2 (two) times daily. Active tirzepatide (MOUNJARO) 2.5 MG/0.5ML injectionIndica tions:Diabetes Mellitus Inject 2.5 mg into the skin every 7 days. Indications: Diabetes Active HYDROcodone-manuel taminophen (NORCO) 5-325 MG tabletIndicatio ns:Acute Pain < 3 Day Supply Take 1 tablet by mouth every 8 (eight) hours as needed for Pain. Indications: Acute Pain < 3 Day Supply 9 tablet 03/25/2024 Active Active Problems Problem Noted Date Diagnosed Date Osteoarthritis of right glenohumeral joint 08/27 Osteoarthritis of glenohumeral joint, left 08/30 Primary osteoarthritis of left knee 12/06/2018 Morbid obesity with BMI of 40.0-44.9, adult 03/09/2017 Anxiety 05/09/2017 Chronic back pain 05/09/2017 Ascending aortic aneurysm 05/09/2017 Elevated fasting glucose 05/09/2017 Hyperlipidemia 05/09/2017 Hypertension 05/09/2017 Kidney stones 05/09/2017 Onychogryphosis 05/09/2017 Family History Medical History Relation Comments No Known Problems Brother 1 No Known Problems Brother 2 No Known Problems Father No Known Problems Mother Relation Status Comments Brother 1 Alive Brother 2 Father Mother Social History Tobacco Use Types Packs/Day Years Used Date Smoking Tobacco: Never Smokeless Tobacco: Never Alcohol Use Standard Drinks/Week Comments No 0 (1 standard drink = 0.6 oz pur e alcohol) Sex and Gender Information Value Date Recorded Sex Assigned at Male 03/25/2024 11:56 AM FIRE SUPPORT MAN Legal Sex Male 10:30 PM FIRE SUPPORT MAN Gender Identity Not on file Sexual Orientation Not on file 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 on file Not on file Not on file Last Filed Vital Signs Vital Sign Reading Time Taken Comments Blood Pressure 133/117 03/25/2024 12:30 PM [employer] SU[employer] MAN Pulse 95 03/25/2024 11:38 AM FI[employer] SUPPORT MAN Temperature 36.7 C (98 F) 03/25/2024 11:38 AM FI[employer] SUPPORT MAN Respiratory Rate 18 03/25/2024 11:38 AM FI[employer] SUPPORT MAN Oxygen Saturation 92% 03/25/2024 12:30 PM FI[employer] SU[employer] MAN Inhaled Oxygen Concentration - - Weight 117.9 kg (260 lb) 03/25/2024 11:38 AM FI[employer] SUPPORT MAN Height 167.6 cm (5' 6) 03/25/2024 11:38 AM FI[employer] SU[employer] MAN Body Mass Index 41.97 03/25/2024 11:38 AM FI[employer] SUPPORT MAN Plan of Treatment Health Maintenance Due Date Last Done Comments Colorectal Cancer Screening Colonoscopy (10 Years) 1955 Hepatitis C 11/08/1973 DTaP, Tdap and Td Vaccines ( 1 - Tdap) 11/08/1974 Pneumococcal Vaccine: 50+ Years (1 of 1 - PCV) 11/08/2005 Zoster Vaccines (1 of 2) 11/08/2005 RSV Immunization or 60+ Years (1 - Risk 60-74 years 1-dose series) 2015 Annual Medicare Wellness Visit 11/08/2020 COVID-19 Vaccine (3 - 2024-2 6 season) 2024 06/06/2020, 05/09/2020 Influenza Adult (#1) 2024 Hepatitis A Vaccines Aged Out No long er eligible based on patient's age to complete this topic Meningococcal B Vaccine Aged Out No l onger eligible based on patient's age to complete this topic Meningococcal Vaccine Aged Out No alta sonia eligible based on patient's age to complete this topic RSV Immunizations Under 20 Months Aged Out No longer eligible b ased on patient's age to complete this topic Procedures Procedure Name Priority Date/Time Associated Diagnosis Comments COLONOSCOPY Routine FIRE SUPPORT MAN from Last 3 Months or Most Recently Relevant to Health Maintenance Results * Colonoscopy ( FIRE SUPPORT MAN) Narrative [employer] TO EPIC CONVERSION - FIRE SUPPORT MAN Documented hx of procedure Procedure Note Izzy Iniguez MD - 12/18/2017 Documented hx of procedure us Generic Dinora Iniguez MD GI PROCEDURE ORDERABLES Final Result [employer] TO EPIC CONVERSION from Last 3 Months or Most Recently Relevant to Health Maintenance Insurance MEDICARE [facility] [employer] Address: [address] [place] [id number] Care Teams Computerized Mill Recorder Relationship Specialty Start Date End Date Bhavin Carson MD [address] [place] [phone] PCP - General FAMILY PRACTICE 10/30/20
== END 2024-12-11 13:58 | disposition home or self-care (01) ==
LOC: CHSIMG 14:01
PROVIDERS: PCP Family Medicine; Visit Provider Physician Assistant
DX: Z01.818 Encounter for other preprocedural examination (principal)
CPT/HCPCS: 71046

== ENCOUNTER 2025-02-11 08:45 | Outpatient (CLI) | payer MEDICARE, OTHER, SELFPAY ==
--- NOTE | ~2025-02-11 | XR_ITS ---
XR abdomen/kub 1V INDICATION: KIDNEY STONE ON RIGHT SIDE REFERENCE: 08/14/2024 FINDINGS: A supine view of the abdomen is submitted. The bowel gas pattern is nonobstructive. No free air is identified. Bilateral intrarenal stones are present. Largest in the right kidney measures 9.5 cm. Largest in the left kidney measures 0.85 cm. IMPRESSION: Bilateral intrarenal stones. Reviewed, dictated and finalized at location S. ENTICE MACHINIST OUTSIDE
--- OUTSIDE RECORDS SUMMARY | 2025-02-11 08:56 | XMS_ITS | Continuity of Care Document ---
Author Organization [facility] Address [address] [place] [address] Care Team Providers Care Senior Insight Manager International Name Role Phone GARIMA BROOKS Primary Care Provider Assessment Encounter Date Assessment Date Assessment LastModified by Organization Details LastModified Time 01/08/2025 01/08/2025 Preoperative diagnosis: Left knee primary osteoarthritis. Postoperative diagnosis: Left knee primary osteoarthritis. Procedure: Left Press Fit total knee arthroplasty with cemented patella Surgeon: Jose Maria Anderson M.D. Wool Dyer: Nancy COSTA. The nurse assistant necessary as a billable senior care assistant in order to facilitate exposure, soft tissue retraction, bony cuts, limb manipulation, cementation and implant insertion as well as final closure. Anesthesia: Spinal with Adductor canal block. Estimated blood loss: 100mL. Complications: None. Specimens: None. Implants: Terri Persona CR 11 Femur F OsseoTi Tibia 35 Patella 10 Medial Congruent Polyethylene Spacer Intraoperative findings: Severe knee osteoarthritis Medial and Patella Brief history and physical examination: The patient has had a long-standing history of knee pain secondary to osteoarthritis. The patient has failed conservative measures. The patient had preoperative radiographs consistent with [id number] osteoarthritis. The risks, benefits and alternatives of surgery including but not limited to infection, wound healing problems, stiffness of the knee, continued knee pain, fracture, hemarthrosis, dislocation, deep vein thrombosis, pulmonary embolism, medical complications, nerve injury, loosening of the prosthesis and need for revision were discussed in detail. The patient understands the risks, expressed understanding and wished to proceed. Procedure: The patient signed the informed consent and the lower extremity. The patient was given a anesthetic and nerve blocks. Intravenous antibiotics were administered. The patient was positioned on the operating room table. A contralateral calf pneumatic compression device was placed. A thigh tourniquet was applied to the operative leg. The patient was then prepped and draped in the normal sterile fashion and a timeout was called and verified. A midline incision was made through skin and subcutaneous tissues with a 15 blade scapel. Bovie electrocautery was used to coagulate all bleeding vessels. A medial parapatellar arthrotomy was performed. A medial release was performed. Fat pad was resected with the help of my nurse assistant. The retractors were placed medially and laterally by my nurse assistant. Significant articular cartilage loss was noted on the femur and tibia. We made a drill hole in the femur. The intramedullary femoral guide was then inserted. The distal femoral cutting guide was applied. A distal femoral resection was made with a oscillating saw with my nurse assistant providing retraction of soft tissue. The femur sized out with a femoral sizing guide. We then drilled our rotational guide in 3 degrees of external rotation. We then pinned our cutting guide. We made sure that the cutting guide did not notch. Then with a oscillating saw performed our anterior, posterior and anterior and chamfer cuts. The cutting guide was removed. The tibia was dislocated anteriorly by my nurse assistant. The extra medullary tibial guide was then placed along the tibial crest and second metatarsal. The tibial cutting guide was pinned in the appropriate position. The tibial cut was made optimally with my nurse assistant providing soft tissue retraction. We resected the proximal tibial bone cut. We then removed the medial and lateral meniscus with an electrocautery device. The ACL and PCL were also resected with the help of my nurse assistant. Posterior osteophytes were taken off the femur with a curved osteotome and curet. The spacing block sized well in flexion and extension. The tibia was then measured and then externally rotated on the middle third of the tibial tubercle. The tibial trial was placed and pinned optimially. The drill hole was made centrally and peripherally as well as the punch. The trial femur was impacted and lugs holes drilled. We then placed the spacer which balanced well in flexion and extension. The patella was everted. The articular cartilage wear was noted in the patella. We noted the sizing of the patella. Our patellar cutting guide was then applied. The patella cut was then made with the oscillating saw. We placed our patellar guide in the superior medial position. 3 drill holes were made. The trial components were then removed. The bony surfaces were thoroughly irrigated with pulsatile lavage. The Tibia and Femoral components were then impacted. Cement was mixed by hand on the back table. The cement was applied to the patella and the patella was inserted and compression was applied until the cement hardened. The spacer was then inserted. The patella component applied and compressed. The spacer was then trialed and found to be optimum in flexion and extension with varus and valgus stress testing at 0, 20 and 90. A posterior capsular injection was performed with Marcaine and epinephrine. Betadine irrigation was used. The spacer insert was then implanted. Bovie electrocautery was used to coagulate all bleeding vessels. Arthrotomy was closed with #1 Vicryl in a [id number] fashion. The subcutaneous layer was closed with 2-0 Vicryl in buried interrupted fashion. A running 4-0 Monocryl was applied. Surgical glue and a Mepilex dressing was then applied. The patient was then returned to the recovery room in stable condition. All sponge, instrument and needle were correct. Disposition: Pain management: [place] for moderate pain , OxyContin 5mg for breakthrough pain. Tramadol 50 mg for mild pain. Antibiotics: Ancef IV upon discharge, Keflex 500 mg tonight. DVT prophylaxis: Enteric-coated aspirin 81 mg 1 tablet twice daily for 4 weeks. Follow-up: Follow up in clinic in approximately 2 weeks with x-rays of the operative knee 3 views. Patient will attend outpatient physical therapy following the procedure. Dressing/wound care: Patient to keep the dressing on for 14 days unless a collagen dressing is approved. The patient may shower after 48 hours with the dressing intact. Discussed with patient, and upon approval, a collagen wound dressing and bandage will be mailed and that the collagen wound care including dressing and powder will be used on the surgical site to help with post-operative wound healing due to patient's health history. The patient will benefit from dressing change every day for a total of 21 days. Physical therapy: Full active and passive range of motion of the knee. Weightbearing as tolerated. Strengthening as tolerated. Walker as tolerated. Not available 01/08/2025 08:27:43 Plan of Treatment Reminders Order Date Submit Date Provider Last Modified By Organization Details Last Modified Time Details Appointments PSA Establish ed 10.EST 2025 09:30A M Dr. Jose Maria Anderson Not available Not available Not available Lab None recorded. Referral None recorded. Procedures None recorded. Surgeries None recorded. Imaging None recorded. Medication Orders None recorded. Patient TargetsNo targets recorded. Patient InstructionsNo instructions recorded. Reason for Referral None Reported. Results Created Date Observation Date Name Description Value Unit Range Abnormal Flag Note LastModifiedBy Organization Detail LastModifiedTime 01/23/2001/22/2025 XR, knee, 3 view No observ ation record ed. [facility] (Radiology) [address] [facility], [place], [address], 01/22/2025 13:51:30 Result Notes None recorded. Problems Name Problem SNOMED Code Status Onset Date Resolution Date Notes Provider Name and Address Organization Details Recorded Time Lumbar radiculopat hy 467717511 Active 2023 Rocco Rodasd [facility], [facility] 4 12:24:42 Low back pain 192958673 Active [address] [facility] 4 04:45:04 Preprocedur al examination done 7440800118367 04 Active 2024 Ashly Bobby [facility], [facility] 5 10:01:45 History of total knee arthroplast y 2396150315829 Active 2024 Jose Maria Anderson MD [address] [place] [address], [phone], [facility] 5 17:31:03 Problem Notes None recorded. Procedures Surgical History Date Name Laterality Status Provider Name and Address Organization Details Recorded Time 025 SC Operative Report completed Jose Maria Anderson MD [address] [place] [address], [phone], [facility] 01/04/2025 18:40:14 025 total replacement of left knee joint completed Jose Maria Anderson MD [address] [place] [address], [phone], [facility] 01/08/2025 08:28:17 025 Euflexxa Injection completed Jose Maria Anderson MD [address] [place] [address], [phone], [facility] 09/16/2024 20:19:57 025 Euflexxa Injection completed Jose Maria Anderson MD [address] [place] [address], [phone], [facility] 09/13/2024 08:26:35 025 VT Viscosupplementation I completed Jose Maria Anderson MD [address] [place] [address], [phone], [facility] 09/11/2024 10:29:48 024 SC Operative Report completed Gracie Dawson MD [address] [place] [address], [phone], [facility] 11/23/2023 11:45:45 Imaging Results None recorded. Procedure Notes None recorded. Medical Equipment None Reported. Allergies No known drug allergies Medications Name Sig Start Date Stop Date Status Note LastModified by Organization Details LastModified Time losartan 50 mg tablet TAKE 1 TABLET BY MOUTH EVERY DAY active Not Available Not Available No t Available prednisone 10 mg tablet TAKE 1 TABLET BY MOUTH TWICE DAILY FOR 10 DAYS active Not Available Not Available No t Available enalapril maleate 10 mg tablet TAKE 1 TABLET BY MOUTH ONCE DAILY 11/16 completed Not Available Not Available Not Available sildenafil 50 mg tablet TAKE 1 TO 2 TABLETS BY MOUTH NEEDED 11/16 completed Not Available Not Available Not Available hydrocodone 5 mg-acetamin ophen 325 mg tablet TAKE 1 TABLET BY MOUTH EVERY 4 TO 6 HOURS NEEDED active Not Available Not Available No t Available testosteron e cypionate 100 mg/mL intramuscul ar oil INJECT 1/2 (ONE-HALF ) ML INTRAMUSC ULARLY ONCE A WEEK 11/16 completed Not Available Not Available Not Available ciprofloxac in 250 mg tablet TAKE 1 TABLET BY MOUTH TWICE A DAY active Not Available Not Available No t Available tramadol 50 mg tablet TAKE 1 TABLET BY MOUTH EVERY 4 TO 6 HOURS NEEDED active Not Available Not Available No t Available terbinafine HCl 250 mg tablet TAKE 1 TABLET BY MOUTH EVERY DAY active Not Available Not Available No t Available BD Regular Bevel Iron Belt 18 gauge x 1 USE 1 SYRINGE ONCE A WEEK FOR DRAWING UP MEDICATIO N 11/16 completed Not Available Not Available Not Available BD Luer-Baljinder Syringe 3 mL 23 gauge x 1 02/15 USE 1 ONCE A WEEK 11/16 completed Not Available Not Available Not Available tamsulosin 0.4 mg capsule TAKE 1 CAPSULE BY MOUTH EVERYDAY AT BEDTIME active Not Available Not Available No t Available gabapentin 800 mg tablet TAKE 1 TABLET AT BEDTIME active Not Available Not Available No t Available gabapentin 300 mg capsule TAKE 3 CAPSULES BY MOUTH NIGHTLY active Not Available Not Available No t Available diclofenac sodium 75 mg tablet,delma yed release TAKE 1 TABLET BY MOUTH TWICE A DAY NEEDED active Not Available Not Available No t Available cephalexin 500 mg tablet TAKE 1 TABLET BY MOUTH AT BEDTIME FOR 1 DAY active Not Available Not Available No t Available gabapentin 100 mg capsule TAKE 2 CAPSULES BY MOUTH TWICE A DAY active Not Available Not Available No t Available Enteric Coated Aspirin 81 mg tablet,delma yed release TAKE 1 TABLET BY MOUTH TWICE A DAY FOR 28 DAYS active Not Available Not Available No t Available metformin ER 500 mg tablet,exte nded release 24 hr TAKE 1 TABLET BY MOUTH EVERY DAY IN THE EVENING active Not Available Not Available No t Available finasteride 5 mg tablet TAKE 1 TABLET BY MOUTH EVERY DAY active Not Available Not Available No t Available amoxicillin 875 mg-potassiu m clavulanate 125 mg tablet TAKE 1 TABLET BY MOUTH TWICE A DAY 09/08 completed Not Available Not Available Not Available oxycodone 5 mg tablet TAKE 1 TABLET BY MOUTH EVERY 6 HOURS NEEDED FOR BREAKTHRO UGH PAIN ONLY active Not Available Not Available No t Available rosuvastati n 10 mg tablet TAKE 1 TABLET BY MOUTH EVERY DAY active Not Available Not Available No t Available rosuvastati n 20 mg tablet TAKE 1/2 (ONE-HALF ) TABLET BY MOUTH ONCE DAILY active Not Available Not Available No t Available Hypodermic Iron Belt 23 gauge x 1 2 USE 1 NEW NEEDLE ONCE A WEEK 11/16 completed Not Available Not Available Not Available Mounjaro 7.5 mg/0.5 mL subcutaneou s pen injector 7.5 MG SUBCUTANE OUSLY EVERY WEEK active Not Available Not Available No t Available Mounjaro 5 mg/0.5 mL subcutaneou s pen injector INJECT 5 MG WEEKLY active Not Available Not Available No t Available Mounjaro 15 mg/0.5 mL subcutaneou s pen injector INJECT 15 MG SUBCUTANE OUSLY EVERY WEEK active Not Available Not Available No t Available Mounjaro 10 mg/0.5 mL subcutaneou s pen injector INJECT 0.5 ML (10 MG) UNDER THE SKIN EVERY WEEK active Not Available Not Available No t Available Mounjaro 12.5 mg/0.5 mL subcutaneou s pen injector 12.5 MG SUBCUTANE OUSLY EVERY WEEK active Not Available Not Available No t Available Mounjaro 2.5 mg/0.5 mL subcutaneou s pen injector INJECT 1 PEN WEEKLY active Not Available Not Available No t Available Vitals None Recorded Social History Question Answer Notes LastModified by Organizat ion Details LastModified Time Tobacco Smoking Status Never Smoker Nataliya Olivo [facility] 09/11/2024 10:02:38 What Was The Date Of Your Most Recent Tobacco Screening? 01/01/2025 [email or web address] Information not available 01/01/2025 Sex: Unknown Functional Status None recorded. Mental Status None recorded. Family History Nothing Reported. Medical History No medical history recorded. Past Encounters Encounter ID Performer Location Encounter Start Date Encounter Closed Date Diagnosis/Indication Diagnosis SNOMED-CT Code Diagnosis ICD10 Code Diagnosis IMO Codes Diagnosis Note [id number] Jose Maria Anderson MD [facility] [place] [address] 01/01/2025 09:54:11 01/01/2025 10:13:12 Osteoarthritis of left knee joint 3944088966 04231 M17.12 [id number] Osteoarthr itis of knee 515431316 M17.9 [id number] Jose Maria Anderson MD [facility] [place] [address] 01/08/2025 08:22:03 02/08/2025 17:41:39 Osteoarthritis of left knee joint 8234805897 97263 M17.12 [id number] Health Concerns Section Related Observation LastModified by Organization Detai ls LastModified Time None Recorded Concern Status LastModified by Organization Details LastModified Time None Recorded Payers Encounter Date Sequence Insurance Name Policy Number Policy Sandoval Covered Member ID Sandoval Member ID Guarantor Name 01/08/2025 1 [place] Craig Caicedo [id number] Craig Caicedo 01/08/2025 2 [facility] Craig Caicedo [id number] Craig Caicedo
--- OUTSIDE RECORDS SUMMARY | 2025-02-11 08:56 | XMS_ITS | Data Portability ---
Author Organization [facility], [address] [place] [address] ([place]) Address [address] [place] [address] Care Team Providers Care Trade Show Coordinator Name Role Phone JIMGARIMA CURIEL Primary Care Provider [phone] Assessment Encounter Date Assessment Date Assessment LastModified by Organization Details LastModified Time 11/06/2024 11/06/2024 History: Craig returns for follow-up of his left knee. Unfortunately the Euflexxa injections did not work. He is on the home physical therapy exercises. He says his pain gets up to a 10 out of 10. He says there is no relief. He cannot straighten his knee out. It is hard for him to go up and down stairs. It is affecting his quality of life. He would like to consider surgical intervention. Physical examination: He has 5 to 125 degrees of active forward flexion of the left knee. He has a small left knee joint effusion. There is pain along the medial joint line of the left knee. There is no varus or valgus laxity left knee. His ankle dorsiflexion is 5 out of 5. X-rays of the left knee were independently reviewed from [facility] and showed severe left knee medial compartment osteoarthritis. Assessment: 1. Severe left knee medial compartment osteoarthritis. Plan: Clinical and radiographic findings were discussed with patient. We discussed further conservative versus surgical treatment options with regard to the left knee. We discussed injections, physical therapy, medications and knee replacement. We discussed a left total knee arthroplasty. The risks, benefits and alternatives of surgery including but not limited to infection, wound healing problems, stiffness of the knee, continued knee pain, DVT, pulmonary embolism, , fracture, patellar dislocation, hemarthrosis, loosening of the prosthesis, need for revision and no complications were discussed in detail. The patient was aware of the risks, express understanding, and wishes to proceed. Aspirin for DVT prophylaxis. Outpatient surgery in [place] in the future. Not available 11/06/2024 09:39:56 01/01/2025 01/01/2025 History: Craig returns for follow-up of his left knee. He is ready proceed with a left total knee arthroplasty next week at [facility]. His pain today is a 2 out of 10. Does worsen with activity. He has attempted conservative treatment with therapy as well as injections. He is going to get his nasal swab today. He denies any history of blood clots himself or in his family. He does not smoke and he has never had cancer requiring chemotherapy. He does note that his range of motion is limited and his pain is significant with twisting of his knee as well as bending his knee as well as squatting type activities. Significant Twisting or kneeling. He says the pain is also severe going shopping. Physical examination: He has 2 to 115 degrees range of motion of the left knee there is no varus or valgus laxity of the left knee. He has a negative Evonne, anterior posterior drawer of the left knee. No edema in the left ankle. He has mild swelling of the left knee. His ankle dorsiflexion is 5 out of 5 on the left side. X-rays of the left knee and Tri panel views were independently reviewed from [facility] and show severe left knee epyf-tm-cnty medial compartment osteoarthritis with 6.9 degrees of mechanicals anatomic axis difference. Assessment: 1. Severe left knee ytjf-vy-budw medial compartment osteoarthritis. Plan: Clinical and radiographic findings were discussed with patient. We discussed further conservative versus surgical treatment options with regard to the left knee. We discussed injections, physical therapy, medications and knee replacement. We discussed a left total knee arthroplasty. The risks, benefits and alternatives of surgery including but not limited to infection, wound healing problems, stiffness of the knee, continued knee pain, DVT, pulmonary embolism, , fracture, patellar dislocation, hemarthrosis, loosening of the prosthesis, need for revision and no complications were discussed in detail. The patient was aware of the risks, express understanding, and wishes to proceed. Aspirin for DVT prophylaxis. We explained how to take the pain medications following the surgery as well as his antibiotic pill as well as the aspirin. We talked about potential outcomes of surgery as well with regard to improvement in time.. Not available 01/01/2025 10:12:37 01/08/2025 01/08/2025 Preoperative diagnosis: Left knee primary osteoarthritis. Postoperative diagnosis: Left knee primary osteoarthritis. Procedure: Left Press Fit total knee arthroplasty with cemented patella Surgeon: Jose Maria Anderson M.D. Technical Supervisor: Nancy COSTA. The program assistant necessary as a billable endodontic assistant in order to facilitate exposure, soft [...] The patient had preoperative radiographs consistent with qljj-gg-mluz osteoarthritis. The risks, benefits and alternatives of [...] was resected with the help of my program assistant. The retractors were placed medially and laterally by my program assistant. Significant articular cartilage loss was noted on the femur and tibia. We made a drill hole in the femur. The intramedullary femoral guide was then inserted. The distal femoral cutting guide was applied. A distal femoral resection was made with a oscillating saw with my program assistant providing retraction of soft tissue. The [...] The tibia was dislocated anteriorly by my program assistant. The extra medullary tibial guide was then placed along the tibial crest and second metatarsal. The tibial cutting guide was pinned in the appropriate position. The tibial cut was made optimally with my program assistant providing soft tissue retraction. We resected the proximal tibial bone cut. We then removed the medial and lateral meniscus with an electrocautery device. The ACL and PCL were also resected with the help of my program assistant. Posterior osteophytes were taken off the [...] was closed with #1 Vicryl in a iufvih-re-pmjil fashion. The subcutaneous layer was closed with 2-0 Vicryl in buried interrupted fashion. A running 4-0 Monocryl was applied. Surgical glue and a Mepilex dressing was then applied. The patient was then returned to the recovery room in stable condition. All sponge, instrument and needle were correct. Disposition: Pain management: [place] for moderate pain , OxyContin 5mg for [...] Walker as tolerated. Not available 01/08/2025 08:27:43 01/22/2025 01/22/2025 History: The patient returns for follow-up of their total knee arthroplasty 2 weeks ago. They have no pain. They have no instability. They are taking no pain medications. Physical Exam: Incision is well healed. Swelling is moderate. Range of motion is 2 to 85 degrees range of motion. Quadriceps strength is 5/5. There is no valgus and no varus laxity. The ankle dorsiflexion is 5/5. The ankle swelling is none. Calf is without tenderness. X-rays of the knee were independently reviewed from [facility] and demonstrate the total knee arthroplasty to be in good position without evidence of fracture, dislocation or loosening. Assessment: Status post left total knee arthroplasty. Plan: Clinical and radiographic findings were discussed with the patient. All questions were answered. Overall the patient is doing well. They will continue physical therapy. The patient will follow-up with us 4 weeks. They will continue DVT prophylaxis post surgical until 4 weeks post op. We encouraged continued home exercises as well as weightbearing activities in order to minimize bone loss as the patient ages. If there are any issues with signs or symptoms of problems including infection, loosening, blood clots or instability the patient was informed to contact us to discuss a sooner follow-up appointment. Not available 01/22/2025 11:17:32 Plan of Treatment Reminders Order Date Submit Date Provider Last Modified By Organization Details Last Modified Time Details Appointments PSA Establish ed 10.EST 2025 09:30A M Dr. Jose Maria Anderson Not available Not available Not available Lab None recorded. Referral None recorded. Procedures None recorded. Surgeries None recorded. Imaging None recorded. Medication Orders hydrocodo ne 5 mg-acetam inophen [address] [facility]/Pharmacy #[id number], [address] [place], [address], 01/01/2025 10:10:54 oxycodone 5 mg tablet 2024 025 [id number], [address] [place] [address], [address], 01/01/2025 10:10:53 tramadol 50 mg tablet 2024 025 [id number], [address] [place], [address], 01/01/2025 10:10:54 cephalexi n 500 mg tablet 2024 025 [id number], [address] [place], [address], 01/01/2025 10:10:44 aspirin 81 mg tablet,de layed release 2024 025 [id number], [address] [place], [address], 01/01/2025 10:10:46 Patient TargetsNo targets recorded. Patient InstructionsNo instructions recorded. Reason for Referral None Reported. Results Created Date Observation Date Name Description Value Unit Range Abnormal Flag Note LastModifiedBy Organization Detail LastModifiedTime 09/12/19 25 09/11/2024 XR, knee, 4 or more view No observ ation record ed. [facility] (Radiology) [address] [facility], [place], [address], 09/11/2024 12:38:05 11/07/19 25 11/06/2024 XR, bone lengt h, hip to ankle No observ ation record ed. [facility] (Radiology) [address] [facility], [place], [address], 11/07/2024 07:18:20 01/23/20 25 01/22/2025 XR, knee, 3 view No observ ation record ed. [facility] (Radiology) [address] [facility], [place], [address], 01/22/2025 13:51:30 Result Notes Documentation Provider Name and Address Organization Details Recorded Time Mrsa Screen, Pcr : This document (1 of 1) was received from [employer] on 01/02/2025 through Direct Message along with the following message body content: You have received a 2 page fax at 01/02/2025 8:07:38 PM. * The Caller-ID for this fax is [phone]. If you have any questions regarding this message or your service contact Corporate Support: [place] Email: [email or web address] Phone: or Email: [email or web address] Phones: [phone] Thank you for using the [employer] service! Not Available [facility] 01/04/2025 02:45:36 Xr, Bone Length, Hip To Ankle : This document (1 of 1) was received from [email or web address] on 11/06/2024 through Direct Message along with the following message body content: You have received a 2 page fax at 11/06/2024 7:00:22 PM. * The Caller-ID for this fax is [phone]. If you have any questions regarding this message or your service contact Corporate Support: [place] Email: [email or web address] Phone: or Email: [email or web address] Phones: [phone] Thank you for using the Car Thro[employer]le service! Not Available [facility] 11/08/2024 02:41:46 Xr, Knee, 3 View : This document (1 of 1) was received from .[employer] on 01/22/2025 through Direct Message along with the following message body content: You have received a 2 page fax at 01/22/2025 5:21:38 PM. * The Caller-ID for this fax is [phone]. If you have any questions regarding this message or your service contact Corporate Support: [place] Email: [email or web address] Phone: or Email: [email or web address] Phones: [phone] Thank you for using the Car Th[employer]le service! Not Available [facility] 01/24/2025 02:43:15 Problems Name Problem SNOMED Code Status Onset Date Resolution Date Notes Provider Name and Address Organization Details Recorded Time Lumbar radiculopat hy 050364149 Active 2023 Rocco Guerin [facility], [facility] 4 12:24:42 Low back pain 688460393 Active 2023 Ren Greene [facility], [facility] 4 04:45:04 Preprocedur al examination done 6223424397980 04 Active 2024 Ashly Rosales [facility], [facility] 5 10:01:45 History of total knee arthroplast y 8155760079878 Active 2024 Jose Maria Anderson MD [address] [place] [address], [phone], [facility] 17:31:03 Problem Notes Documentation Provider Name and Address Organization Details Recorded Time Physical Therapist Consult Note : This document (1 of 1) was received from [email or web address] on 02/01/2025 through Direct Message along with the following message body content: You have received a 4 page fax at 02/01/2025 3:56:03 PM. * The Caller-ID for this fax is . If you have any questions regarding this message or your service contact Corporate Support: [place] Email: [email or web address] Phone: or Email: [email or web address] Phones: [phone] Thank you for using the Car Th[employer]ttle service! Zakia Moreland [facility] 02/01/2025 12:27:46 Procedures Surgical History Date Name Laterality Status Provider Name and Address Organization Details Recorded Time 025 SC Operative Report completed Jose Maria Anderson MD [address] [place] [address], [phone], [facility] 01/04/2025 18:40:14 025 total replacement of left knee joint completed Jose Maria Anderson MD [address] [place] [address], [phone], [facility] 01/08/2025 08:28:17 025 Euflexxa Injection completed Jose Maria Anderson MD [address] [place] [address], [phone], [facility] 09/16/2024 20:19:57 025 Euflexxa Injection completed Jose Maria Anderson MD [address] [place] [address], [phone], [facility] 09/13/2024 08:26:35 025 [place] Viscosupplementation I completed Jose Maria Anderson MD [address] [place] [address], [phone], [facility] 09/11/2024 10:29:48 024 [place] Operative Report completed Gracie Dawson MD [address] [place] [address], [phone], [facility] 11/23/2023 11:45:45 Imaging Results None recorded. [...] Available No t Available BD Regular Bevel [place] 18 gauge x 1 USE 1 SYRINGE [...] Available Not Available No t Available Hypodermic [place] 23 gauge x 1 1/2 USE 1 [...] No t Available Vitals Date Recorded Body height Provider Name an d Address Organization Details Last Updated DateTime 09/25/2024 170.18 cm [facility] 09/25/2024 09:19:15 Date Recorded Body height Body mass index (BMI) Body weight Heart rate Oxygen saturation Systolic And Diastolic Provider Name and Address Organization Details Last Updated DateTime 170.18 cm 30.2 kg/m2 63211.3 3 g 71 /min 98 % 121/81 mm[Hg] [facility] 5 09:18:38 Date Recorded Body height Body mass index (BMI) Body weight Heart rate Oxygen saturation Systolic And Diastolic Provider Name and Address Organization Details Last Updated DateTime 170.18 cm 29.8 kg/m2 63030.5 5 g 68 /min 98 % 125/81 mm[Hg] [facility] 10:00:50 Date Recorded Body height Body mass index (BMI) Body weight Heart rate Oxygen saturation Systolic And Diastolic Provider Name and Address Organization Details Last Updated DateTime 170.18 cm 29.8 kg/m2 40289.5 5 g 97 /min 96 % 135/91 mm[Hg] [facility] 5 11:04:53 Social History Question Answer Notes LastModified by Organizat ion Details LastModified Time Tobacco Smoking Status Never Smoker [facility] 09/11/2024 10:02:38 What Was The Date Of Your Most Recent Tobacco Screening? 01/01/2025 [email or web address] Information not available 01/01/2025 Sex: Unknown Functional Status None recorded. Mental Status None recorded. Family History Nothing Reported. Medical History No medical history recorded. Past Encounters Encounter ID Performer Location Encounter Start Date Encounter Closed Date Diagnosis/Indication Diagnosis SNOMED-CT Code Diagnosis ICD10 Code Diagnosis IMO Codes Diagnosis Note [id number] Gracie Dawson MD [address] [facility] ([place]) [address] [address] 11/17/2023 11:31:14 11/17/2023 17:14:44 Low back pain 701392349 M54.50 Additional diagnosis detail: Lumbar back pain [id number] Gracie Dawson MD [facility] ([place]) [address] [place] [address], [address] [place] [address] 11/23/2023 09:34:51 11/24/2023 09:57:09 [id number] Jose Maria Anderson MD [facility] ([place] [place] [address] 09/11/2024 09:42:23 09/11/2024 10:32:46 Osteoarthritis of left knee joint 0591477292 25095 M17.12 [id number] Jose Maria Anderson MD [facility] ([place] [address] 09/18/2024 09:09:12 09/18/2024 09:40:47 Osteoarthritis of left knee joint 5916057711 62763 M17.12 [id number] Jose Maria Anderson MD [facility] ([place] [place] [address] 09/25/2024 09:17:06 09/25/2024 10:00:53 Osteoarthritis of left knee joint 8801191916 97325 M17.12 [id number] Jose Maria Anderson MD [facility] [place] [address] 11/06/2024 08:52:49 11/06/2024 09:40:34 Osteoarthritis of left knee joint 0377892108 11192 M17.12 [id number] MD ODILON [facility] ([place] [place] [address] 01/01/2025 09:54:11 01/01/2025 10:13:12 Osteoarthritis of left knee joint 8440593659 74993 M17.12 [id number] Osteoarthr itis of knee 658325248 M17.9 [id number] MD Meir Chin [facility] [place] [address] 01/08/2025 08:22:03 02/08/2025 17:41:39 Osteoarthritis of left knee joint 7784664334 87800 M17.12 [id number] MD ODILON [facility] ([place] [place] [address] 01/22/2025 10:44:49 01/22/2025 11:17:47 History of total knee arthroplasty 3531636836 105 Z96.652 [id number] Health Concerns Section Related Observation LastModified by Organization Detai ls LastModified Time None Recorded Concern Status LastModified by Organization Details LastModified Time None Recorded Advance Directives Directive None Recorded Payers Insurance Date Sequence Insurance Name Policy Number Policy Sandoval Covered Member ID Sandoval Member ID Guarantor Name 01/17/2025 2 [facility] (INDEMNITY) Craig Caicedo [id number] Craig Caicedo 01/18/2025 1 MEDICARE-ID (MEDICARE) Craig Caicedo [id number] Craig Caicedo
--- OUTSIDE RECORDS SUMMARY | 2025-02-11 08:56 | XMS_ITS | Continuity of Care Document ---
Author Organization [facility], [facility] ([place]) Address [address] [place] [address] Care Team Providers Care Technical Developer Name Role Phone GARIMA BROOKS Primary Care Provider Assessment Encounter Date Assessment Date Assessment LastModified by Organization Details LastModified Time 01/01/2025 01/01/2025 History: Craig returns for follow-up of his left knee. He is ready proceed with a left total knee arthroplasty next week at [facility]. His pain today is a 2 [...] Tri panel views were independently reviewed from [facility] and show severe left knee rijs-gu-[id number] medial compartment osteoarthritis with 6.9 degrees of mechanicals anatomic axis difference. Assessment: 1. Severe left knee kbux-nz-mztj medial compartment osteoarthritis. Plan: Clinical and radiographic [...] improvement in time.. Not available 01/01/2025 10:12:37 Plan of Treatment Reminders Order Date Submit Date Provider Last Modified By Organization Details Last Modified Time Details Appointments PSA Establish ed 10.EST 2025 09:30A M Dr. Jose Maria Anderson Not available Not available Not available Lab None recorded. Referral None recorded. Procedures None recorded. Surgeries None recorded. Imaging None recorded. Medication Orders hydrocodo ne 5 mg-acetam inophen 325 mg tablet 2024 025 [facility] #[id number], [address] [place], [address], 01/01/2025 10:10:54 oxycodone 5 mg tablet 2024 025 [facility] #[id number], [address] [place], [address], 01/01/2025 10:10:53 tramadol 50 mg tablet 2024 025 [facility] #[id number], [address] [place], [address], 01/01/2025 10:10:54 cephalexi n 500 mg tablet 2024 025 [facility] #[id number], [address] [place], [address], 01/01/2025 10:10:44 aspirin 81 mg tablet,de layed release 2024 025 [facility] #[id number], [address] [place], [address], 01/01/2025 10:10:46 Patient TargetsNo targets recorded. Patient InstructionsNo instructions recorded. Reason for Referral None Reported. Results Created Date Observation Date Name Description Value Unit Range Abnormal Flag Note LastModifiedBy Organization Detail LastModifiedTime 01/23/2001/22/2025 XR, knee, 3 view No observ ation record ed. [facility] (Radiology) [address] [place], [address], 01/22/2025 13:51:30 Result Notes None recorded. Problems Name Problem SNOMED Code Status Onset Date Resolution Date Notes Provider Name and Address Organization Details Recorded Time Lumbar radiculopat hy 798603944 Active 2023 Rocco Guerin [facility], [facility] 4 12:24:42 Low back pain 263860616 Active 2023 Ren Jc [facility] 4 04:45:04 Preprocedur al examination done 4581613383580 04 Active 2024 Ashly Rosales [facility] 5 10:01:45 History of total knee arthroplast y 6845704613840 Active 2024 Jose Maria Anderson MD [address] [place] [address], [phone], [facility] 5 17:31:03 Problem Notes None recorded. Procedures Surgical History Date Name Laterality Status Provider Name and Address Organization Details Recorded Time SC Operative Report completed Jose Maria Anderson MD [address] [place] [address], [phone], [facility] 01/04/2025 18:40:14 total replacement of left knee joint completed Jose Maria Anderson MD [address] [place] [address], [phone], [facility] 01/08/2025 08:28:17 025 Euflexxa Injection completed Jose Maria Anderson MD [address] [place] [address], [phone], [facility] 09/16/2024 20:19:57 025 Euflexxa Injection completed Jose Maria Anderson MD [address] [place] [address], [phone], [facility] 09/13/2024 08:26:35 025 SC Viscosupplementation I completed Jose Maria Anderson MD [address] [place] [address], [phone], [facility] 09/11/2024 10:29:48 024 SC Operative Report completed Gracie Dawson MD [address] [place] [address], [phone], [facility] 11/23/2023 11:45:45 Imaging Results None [...] Available No t Available BD Regular Bevel [place] 18 gauge x 1 USE 1 SYRINGE [...] Available Not Available No t Available Hypodermic [place] 23 gauge x 1 1/2 USE 1 [...] t Available Vitals Date Recorded Body height Body mass index (BMI) Body weight Heart rate Oxygen saturation Systolic And Diastolic Provider Name and Address Organization Details Last Updated DateTime 5 170.18 cm 29.8 kg/m2 06180.5 5 g 68 /min 98 % 125/81 mm[Hg] Nataliya Olivo [facility] 5 10:00:50 Social History Question Answer Notes LastModified by Organizat ion Details LastModified Time Tobacco Smoking Status Never Smoker Nataliya Olivo [facility] 09/11/2024 10:02:38 What Was The Date Of Your Most Recent Tobacco Screening? 01/01/2025 [email or web address] Information not available 01/01/2025 Sex: Unknown Functional Status None recorded. Mental Status None recorded. Family History Nothing Reported. Medical History No medical history recorded. Past Encounters Encounter ID Performer Location Encounter Start Date Encounter Closed Date Diagnosis/Indication Diagnosis SNOMED-CT Code Diagnosis ICD10 Code Diagnosis IMO Codes Diagnosis Note [id number] MD [facility] [address] [facility] [place] [address] 01/01/2025 09:54:11 01/01/2025 10:13:12 Osteoarthritis of left knee joint 5751085463 37176 M17.12 [id number] Osteoarthr itis of knee 652081814 M17.9 Health Concerns Section Related Observation LastModified by Organization Detai ls LastModified Time None Recorded Concern Status LastModified by Organization Details LastModified Time None Recorded Payers Encounter Date Sequence Insurance Name Policy Number Policy Sandoval Covered Member ID Sandoval Member ID Guarantor Name 01/01/2025 1 [place] Craig Caicedo [id number] Craig Caicedo 01/01/[address] [facility] (INDEMNITY) Craig Caicedo [id number] Craig Caicedo
--- OUTSIDE RECORDS SUMMARY | 2025-02-11 08:56 | XMS_ITS | Clinical Summary ---
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 Not on file Not on file Last Filed Vital Signs Vital Sign Reading Time Taken Comments Blood Pressure 133/117 03/25/2024 12:30 PM LICENSED MIDWIFE Pulse 95 03/25/2024 11:38 AM LICENSED MIDWIFE Temperature 36.7 C (98 F) 03/25/2024 11:38 AM LICENSED MIDWIFE Respiratory Rate 18 03/25/2024 11:38 AM LICENSED MIDWIFE Oxygen Saturation 92% 03/25/2024 12:30 PM LICENSED MIDWIFE Inhaled Oxygen Concentration - - Weight 117.9 kg (260 lb) 03/25/2024 11:38 AM LICENSED MIDWIFE Height 167.6 cm (5' 6) 03/25/2024 11:38 AM LICENSED MIDWIFE Body Mass Index 41.97 03/25/2024 11:38 AM LICENSED MIDWIFE Plan of Treatment Health Maintenance Due Date [...] Priority Date/Time Associated Diagnosis Comments COLONOSCOPY Routine LICENSED MIDWIFE from Last 3 Months or Most Recently Relevant to Health Maintenance Results * Colonoscopy ( LICENSED MIDWIFE) Narrative [facility] TO EPIC CONVERSION - LICENSED MIDWIFE Documented hx of procedure Procedure Note Izzy Iniguez MD - 12/18/2017 Documented hx of procedure us Generic Dinora Iniguez MD GI PROCEDURE ORDERABLES Final Result [facility] TO EPIC CONVERSION from Last 3 Months or Most Recently Relevant to Health Maintenance Insurance MEDICARE [facility] Care Teams Testing Analyst Relationship Specialty Start Date End Date Bhavin Carson MD [address] [place] [phone] PCP - General FAMILY PRACTICE 10/30/20
--- OUTSIDE RECORDS SUMMARY | 2025-02-11 08:56 | XMS_ITS | Encounter Summary ---
Author Organization [facility] Address [address] [place] [address] Care Team Providers Care Dope Weigh Operator Name Role Phone Brian Bishop MD Primary Care Provider [phone] Bhavin Carson MD Primary Care Provider Encounter Details Date Type Department Care Team (Late st Contact Info) Description 07/22/2018 Abstract SFL CONVERSION [address] [place] [address] , Generic Conversion, Social History Tobacco Use Types Packs/Day Years Used Date Smoking Tobacco: Never Smokeless Tobacco: Never Alcohol Use Standard Drinks/Week Comments No 0 (1 standard drink = 0.6 oz pur e alcohol) Sex and Gender Information Value Date Recorded Sex Assigned at Male 03/25/2024 11:56 AM 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 Legal Sex Male 10:30 PM 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 Gender Identity Not on file Sexual Orientation Not on file 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
--- OUTSIDE RECORDS SUMMARY | 2025-02-11 08:56 | XMS_ITS | Continuity of Care Document ---
Author Organization [facility], [facility] ([place]) Address [address] [place] [address] Care Team Providers Care Department Sales Manager Name Role Phone GARIMA BROOKS Primary Care Provider Assessment Encounter Date Assessment Date Assessment LastModified by Organization Details LastModified Time 01/22/2025 01/22/2025 History: The patient returns for [...] of the knee were independently reviewed from [facility] and demonstrate the total knee arthroplasty to [...] Abnormal Flag Note LastModifiedBy Organization Detail LastModifiedTime 01/23/20 25 01/22/2025 XR, knee, 3 view No observ ation record ed. [facility] (Radiology) [address] [facility], [place], [address], 01/22/2025 13:51:30 Result Notes Documentation Provider Name and Address Organization Details Recorded Time Xr, Knee, 3 View : This document (1 of 1) was received from [email or web address] on 01/22/2025 through Direct Message along with the following message body content: You have received a 2 page fax at 01/22/2025 5:21:38 PM. * The Caller-ID for this fax is [phone]. If you have any questions regarding this message or your service contact [employer] Support: [place] Email: [email or web address] Phone: or Email: [email or web address] Phones: [phone] Thank you for using the [employer]lee service! Not Available [facility] 01/24/2025 02:43:15 Problems Name Problem SNOMED Code Status Onset Date Resolution Date Notes Provider Name and Address Organization Details Recorded Time Lumbar radiculopat hy 211554139 Active 2023 Rocco Guerin [facility] 4 12:24:42 Low back pain 914189220 Active 2023 Ren Greene [facility] 4 04:45:04 Preprocedur al examination done 9978125869695 04 Active 2024 Ashly Rosales [facility] 10:01:45 History of total knee arthroplast y 4929870820334 Active 2024 Jose Maria Anderson MD [address] [place] [address], [phone], [facility] 17:31:03 Problem Notes None recorded. Procedures Surgical History Date Name Laterality Status Provider Name and Address Organization Details Recorded Time 025 SC Operative Report completed Jose Maria Anderson MD [address] [place] [address], [phone], [facility] 01/04/2025 18:40:14 025 total replacement of left knee joint completed Jose Maria Anderson MD [address] [place] [address], [phone], [facility] 01/08/2025 08:28:17 025 Euflexxa Injection completed Jose Maria Anderson MD [address] [place] [address], [phone], [facility] 09/16/2024 20:19:57 025 Euflexxa Injection completed Jose Maria Anderson MD [address] [place] [address], [phone], [facility] 09/13/2024 08:26:35 025 SC Viscosupplementation I completed Jose Maria Anderson MD [address] [place] [address], [phone], [facility] 09/11/2024 10:29:48 024 SC Operative Report completed Gracie Dawson MD [address] [place] [address], [phone], [facility] 11/23/2023 11:45:45 Imaging Results None [...] Available No t Available BD Regular Bevel [place] 18 gauge x 1 USE 1 SYRINGE [...] Not Available No t Available amoxicillin 875 mg-juancho hood clavulanate 125 mg tablet TAKE 1 TABLET [...] Available Not Available No t Available Hypodermic [place] 23 gauge x 1 /2 USE 1 NEW NEEDLE ONCE A WEEK [...] Updated DateTime 5 170.18 cm 29.8 kg/m2 01727.5 5 g 97 /min 96 % 135/91 mm[Hg] Nataliya Olivo [facility] 5 11:04:53 Social History Question Answer Notes LastModified by Organizat ion Details LastModified Time Tobacco Smoking Status Never Smoker Nataliya thomas [place] [facility] 09/11/2024 10:02:38 What Was The Date Of Your Most Recent Tobacco Screening? 01/01/2025 [email or web address] Information not available 01/01/2025 Sex: Unknown Functional Status None recorded. Mental Status None recorded. Family History Nothing Reported. Medical History No medical history recorded. Past Encounters Encounter ID Performer Location Encounter Start Date Encounter Closed Date Diagnosis/Indication Diagnosis SNOMED-CT Code Diagnosis ICD10 Code Diagnosis IMO Codes Diagnosis Note [id number] Jose Maria Anderson MD [facility] ([place] [place] [address] 01/01/2025 09:54:11 01/01/2025 10:13:12 Osteoarthritis of left knee joint 3753707667 47968 M17.12 2714209 Osteoarthr itis of knee 717043011 M17.9 [id number] Jose Maria Anderson MD [facility] [place] [address] 01/08/2025 08:22:03 02/08/2025 17:41:39 Osteoarthritis of left knee joint 1546601603 76952 M17.12 [id number] Jose Maria Anderson MD [facility] [place] [address] 01/22/2025 10:44:49 01/22/2025 11:17:47 History of total knee arthroplasty 9667813515 105 Z96.652 [id number] Health Concerns Section Related Observation LastModified by Organization Detai ls LastModified Time None Recorded Concern Status LastModified by Organization Details LastModified Time None Recorded Payers Encounter Date Sequence Insurance Name Policy Number Policy Sandoval Covered Member ID Sandoval Member ID Guarantor Name 01/22/2025 1 [place] Craig Caicedo [id number] Craig Caicedo 01/22/2025 [address] [facility] Craig Caicedo [id number] Craig Caicedo
== END 2025-02-11 08:46 | disposition home or self-care (01) ==
LOC: CHSIMG 08:48
PROVIDERS: PCP Family Medicine; Visit Provider Urology
DX: N20.0 Calculus of kidney (principal)
CPT/HCPCS: 74018